=== PATIENT | female | born 1990 | race Caucasian/White ===

== ENCOUNTER 2020-04-04 14:30 | Outpatient (CLI) | payer OTHER ==
[2020-04-04 15:10] LABS: BILIRUBIN,URINE NEGATIVE (NEGATIVE); GLUCOSE, URINE (UA) NEGATIVE (NEGATIVE); KETONES,URINE (UA) NEGATIVE (NEGATIVE); LEUKOCYTE ESTERASE, URINE NEGATIVE (NEGATIVE); NITRITE,URINE NEGATIVE (NEGATIVE); OCCULT BLOOD,URINE NEGATIVE (NEGATIVE); PROTEIN,URINE NEGATIVE (NEGATIVE); UROBILINOGEN,URINE 0.2 (NORMAL) E.U./dL (NORMAL)
[2020-04-04 15:14] LABS: CLARITY,URINE CLEAR (CLEAR)
[2020-04-04 15:16] VITALS: BP 98/63
[2020-04-04 15:32] LABS: RBC,URINE 0-5 /HPF (0-5)
[2020-04-04 15:33] LABS: BACTERIA,URINE Rare /HPF (None Seen); SQUAMOUS EPITHELIAL CELL,UR RARE Squamous (<= Few)
--- NOTE | 2020-04-04 18:01 | PROVIDER PROGRESS NOTE ---
Subjective - Subjective Subjective: CC: vaginal bleeding HPI: came to ER and was evaluated on L&D for vaginal bleeding, spotting, started today. No trauma or LOF. Is feeling some cramping abdominal pain that is mild. Does NOT feel like labor. No dysuria, no abnormal discharge. O: AVSS, alert, NAD. Abd soft, gravid. Fundus nontender. External genetalia, labia, urethra normal. Vagina pink with normal discharge. Cervix with ectropion present. SVE closed. Bedside CL with me was 4cm. Wet mount: + clue cells Formal US: CL >3cm and closed, no previa, no subchorionic hemorrhage. Bilateral CPK present. [place]: neg FHT's normal A/P: 29yo at 19w with vaginal bleeding due to BV and ectropion, will treat with metronidazole. Incidental finding of bilateral choroid plexus cysts , she would like genetic screening, proper paperwork is not available. will call her tomorrow to arrange that as well as transfer from [facility] per her request. Objective - Vital Signs/Intake & Output Vital Signs: Vital Signs x48h Temp Pulse Resp BP Pulse Ox 04/04/20 15:15 98/63 04/04/20 15:03 99.1 F 78 17 97/57 L 99 - Lab Results Other Labs: Lab Results x24hrs 04/04/20 Range/Units 14:45 Urine Color YELLOW Urine Clarity CLEAR (CLEAR) Urine pH 7.0 (5.0-7.5) PH Ur Specific [place] 1.015 (1.002-1.030) Urine Protein NEGATIVE (NEGATIVE) mg/dL Urine Glucose (UA) NEGATIVE (NEGATIVE) mg/dL Urine Ketones NEGATIVE (NEGATIVE) mg/dL Urine Occult Blood NEGATIVE (NEGATIVE) Urine Nitrite NEGATIVE (NEGATIVE) Urine Bilirubin NEGATIVE (NEGATIVE) Urine Urobilinogen 0.2 (NORMAL) (NORMAL) E.U./dL Ur Leukocyte Esterase NEGATIVE (NEGATIVE) Urine RBC 0-5 (0-5) /HPF Urine WBC 0-3 (0-5) /HPF Ur Squamous Epith Cells RARE Squamous (<= Few) Urine Bacteria Rare (None Seen) /HPF Urine Culture Comments NOT INDICATED
--- NOTE | 2020-04-04 18:37 | Ultrasound Report ---
PROCEDURE: OB Limited INDICATIONS: vaginal bleeding at 19w eval placenta OUTSIDE/PRIOR DATING DATA: Last menstrual period (LMP): 5.16.20. LMP-based estimated date of delivery (NAHED): -. First dating scan (date and location): Unknown. Estimated date of delivery (NAHED) from first dating scan: 08.26.20. TECHNIQUE: Real-time scanning was performed of the fetus, with image documentation. Endovaginal scanning: Yes COMPARISON: None. FINDINGS: A single living intrauterine gestation is present. Presentation: Variable Placenta: Placental position is posterior, without previa. Amniotic fluid index: 10.9 cm, 15th percentile for gestational age. heart rate: 153 beats per minutes. Maternal cervical canal: 3.7 cm long; normal length is 2.5 cm or more. biometrics: BPD: 45 mm; 19 weeks 4 days Head circumference: 164 mm; 19 weeks 1 day Abdominal circumference: 153 mm; 20 weeks 1 day Femur length: 27 mm; 18 weeks 2 days Composition gestational age based on current OB ultrasound: 19 weeks 3 days Estimated weight: 294 g, which is at the 40th percentile for gestational age Limited survey of anatomy includes choroid plexus cysts bilaterally, normal chest/diaphragm, st omach/abdomen, bilateral renal regions, and urinary bladder/pelvis. IMPRESSION: 1. Single living intrauterine gestation. 2. Choroid plexus cysts. Reviewed by: Bandar Hoyt MD on 04/04/2020 6:36 PM PDT Approved by: Bandar Hoyt MD on 04/04/2020 6:36 PM PDT Station ID: [id number]
--- NOTE | 2020-04-04 18:39 | Ultrasound Report ---
PROCEDURE: OB Transvaginal INDICATIONS: Vaginal bleeding at 19w need CL TECHNIQUE: Endovaginal ultrasound examination was performed. COMPARISON: None. FINDINGS: Please see the accompanying Limited OB ultrasound report. IMPRESSION: Endovaginal ultrasound was performed. Please see the accompanying obstetric ultrasound report for fur ther discussion. Reviewed by: Bandar Hoyt MD on 04/04/2020 6:37 PM PDT Approved by: Bandar Hoyt MD on 04/04/2020 6:37 PM PDT Station ID: [id number]
[2020-04-05 00:19] LABS: TRICHOMONAS VAGINALIS DNA NEGATIVE (NEGATIVE)
== END 2020-04-04 18:10 | disposition home or self-care (01) ==
LOC: WFO 14:30 → FBP 14:37 → WFO 18:10
PROVIDERS: ATTEND Obstetrics & Gynecology
DX: O23.592 Infection of other part of genital tract in pregnancy, second trimester (principal); O99.89 Other specified diseases and conditions complicating pregnancy, childbirth and the puerperium; N86 Erosion and ectropion of cervix uteri; O26.852 Spotting complicating pregnancy, second trimester; Z3A.19 19 weeks gestation of pregnancy
CPT/HCPCS: 76815; 76817; 81001; 87086; 87210; 87491; 87591; 87661; 99214

== ENCOUNTER 2020-06-08 09:53 | Outpatient (CLI) | payer OTHER ==
[2020-06-08 11:32] LABS: HGB - HEMOGLOBIN 12.2 g/dL (12.0-16.0); MEAN CORPUSCULAR HEMOGLOBIN 31.9 pg (27.0-31.0); MEAN CORPUSCULAR VOLUME 93.7 fL (81.0-99.0); MEAN PLATELET VOLUME 9.8 fL (7.9-10.8); RED BLOOD COUNT 3.83 10^6/uL (4.20-5.40); RED CELL DISTRIBUTION WIDTH 13.4 % (12.0-15.0); WHITE BLOOD COUNT 9.4 x10^3/uL (4.8-10.8)
== END 2020-06-08 09:54 | disposition home or self-care (01) ==
LOC: LAB 09:53
PROVIDERS: ATTEND Obstetrics & Gynecology
DX: O09.90 Supervision of high risk pregnancy, unspecified, unspecified trimester (principal)
CPT/HCPCS: 36415; 82950; 85027

== ENCOUNTER 2020-06-26 07:00 | Outpatient (CLI) | payer OTHER ==
[2020-06-26 19:25] LABS: BACTERIAL VAGINOSIS DNA NEGATIVE (NEGATIVE); CANDIDA KRUSEI DNA NEGATIVE (NEGATIVE); TRICHOMONAS VAGINALIS DNA NEGATIVE (NEGATIVE)
[2020-06-26 19:26] LABS: CANDIDA GLABRATA DNA NEGATIVE (NEGATIVE); CANDIDA GROUP DNA NEGATIVE (NEGATIVE)
[2020-06-26 21:04] LABS: CHLAMYDIA TRACHOMATIS DNA NEGATIVE (NEGATIVE); NEISSERIA GONORRHOEAE DNA NEGATIVE (NEGATIVE); TRICHOMONAS VAGINALIS DNA NEGATIVE (NEGATIVE)
== END 2020-06-26 23:59 | disposition home or self-care (01) ==
LOC: MERGE 07:00 → LAB.R 07:00
PROVIDERS: ATTEND Obstetrics & Gynecology
DX: O09.90 Supervision of high risk pregnancy, unspecified, unspecified trimester (principal); O60.00 Preterm labor without delivery, unspecified trimester; R30.0 Dysuria
CPT/HCPCS: 82731; 87086; 87491; 87591; 87661; 87801

== ENCOUNTER 2020-08-16 08:00 | Outpatient (CLI) | payer OTHER ==
[2020-08-16 10:38] LABS: BASOPHILS # (AUTO) 0.1 10^3/uL (0.0-0.1); BASOPHILS % (AUTO) 0.5 %; EOSINOPHILS # (AUTO) 0.1 10^3/uL (0.0-0.7); EOSINOPHILS % (AUTO) 0.5 %; HGB - HEMOGLOBIN 12.3 g/dL (12.0-16.0); LYMPHOCYTES # (AUTO) 2.2 10^3/uL (1.5-3.5); LYMPHOCYTES % (AUTO) 20.8 %; MEAN CORPUSCULAR HEMOGLOBIN 30.1 pg (27.0-31.0); MEAN CORPUSCULAR HGB CONC 32.5 g/dL (32.0-36.0); MEAN CORPUSCULAR VOLUME 92.4 fL (81.0-99.0); MEAN PLATELET VOLUME 10.5 fL (7.9-10.8); MONOCYTES # (AUTO) 0.7 10^3/uL (0.0-1.0); NEUTROPHILS # (AUTO) 7.1 10^3/uL (1.5-6.6); NEUTROPHILS % (AUTO) 68.6 %; PLT - PLATELET COUNT 157 10^3/uL (130-450); RED BLOOD COUNT 4.09 10^6/uL (4.20-5.40); RED CELL DISTRIBUTION WIDTH 13.3 % (12.0-15.0); WHITE BLOOD COUNT 10.4 x10^3/uL (4.8-10.8)
== END 2020-08-16 08:01 | disposition home or self-care (01) ==
LOC: LAB 08:00 → MERGE 08:00 → LAB 08:01
PROVIDERS: ATTEND Obstetrics & Gynecology
DX: Z01.812 Encounter for preprocedural laboratory examination (principal); O34.83 Maternal care for other abnormalities of pelvic organs, third trimester; N81.89 Other female genital prolapse; Z3A.39 39 weeks gestation of pregnancy; Z20.822 Contact with and (suspected) exposure to COVID-19
CPT/HCPCS: 36415; 85025

== ENCOUNTER 2020-08-20 05:28 | Inpatient (IN) | payer OTHER ==
[2020-08-20] MEDS: LACTATED RINGERS 1,000 ML IV SCH ×2 (06:15→17:49)
[2020-08-20 06:42] LABS: BASOPHILS % (AUTO) 0.4 %; EOSINOPHILS % (AUTO) 0.5 %; HGB - HEMOGLOBIN 11.3 g/dL (12.0-16.0); LYMPHOCYTES % (AUTO) 23.7 %; MEAN CORPUSCULAR HEMOGLOBIN 30.3 pg (27.0-31.0); MEAN CORPUSCULAR HGB CONC 32.6 g/dL (32.0-36.0); MEAN PLATELET VOLUME 10.2 fL (7.9-10.8); MONOCYTES # (AUTO) 0.6 10^3/uL (0.0-1.0); MONOCYTES % (AUTO) 7.4 %; NEUTROPHILS # (AUTO) 5.5 10^3/uL (1.5-6.6); PLT - PLATELET COUNT 152 10^3/uL (130-450); RED BLOOD COUNT 3.73 10^6/uL (4.20-5.40); RED CELL DISTRIBUTION WIDTH 13.3 % (12.0-15.0); WHITE BLOOD COUNT 8.4 x10^3/uL (4.8-10.8)
--- NOTE | 2020-08-20 06:50 | HISTORY & PHYSICAL EXAMINATION ---
HPI - History of Present Illness HPI Comment/Other: The patient is a 29-year-old G2, now P1 at 38 weeks and 3 days EGA, here forPNV and preop assessment for CS and BTL. Patient transferred care from [facility] at 24 wga . Her has been complicated by presence of bilateral choroid plexus cysts on ultrasound with an estimated weight of 13 percentile.MFM not concerned on fu. . Patient has also had significant pelvic floor prolapse surgery and is opting for primary CS for delivery. Patient also notes that she has a history of congenital heart defect herself. She reveals that she has mitral valve prolapse and a "hole in her heart" that resolved with observation. She is not clear where the hole in her heart had been seen. Dating is by LMP of 11/21/2019, which gives an NAHED of 08/25/2020. Ultrasound on 01/31/2020 at 10 weeks 1 day gives NAHED of 08/25/2020, which is consistent with dates. Last was a normal after an elective induction. No forceps delivery. No vacuum delivery. She had prolapse surgery a year later in May of 2019 in [place]. Failed pessary and physical therapy. She believes that she underwent anterior-posterior repair as well as some sort of suspension procedure. It was very painful and she continues to have issues with it. She is now having some prolapse symptoms that are uncomfortable for her at present present. . Tolld that she will likely need a repeat procedure in about 10 years. Alternatively, she could have a and avoid undoing the surgery, but would have to undergo the recovery from a . Wants to proceed with CS a nd BTL. [facility] consents had been signed. otherwise uncomplicated. +FM. Denies LOF or VB/CTX. Allergies: SULFONAMIDES (Critical) Medications: BREAST PUMP (MISC. DEVICES) Double electric breast pump with breast pump kit. sig: pump each breast as needed Dx: Z39.1 Lactating Mother YONG: 5 years NAHED: 08/25/2020 FAMOTIDINE 20 MG ORAL TABLET (FAMOTIDINE) Take one tablet by mouth daily; Route: ORAL METOCLOPRAMIDE HCL 5 MG ORAL TABLET (METOCLOPRAMIDE HCL) Take 1-2 tablets by mouth every 6 hours as needed for headache or nausea; Route: ORAL ASCORBIC ACID 250 MG ORAL TABLET (ASCORBIC ACID) Take one tablet by mouth daily with iron; Route: ORAL FERROUS SULFATE 325 (65 FE) MG ORAL TABLET (FERROUS SULFATE) Take one tablet by mouth daily; Route: ORAL PRE-SOFIA FORMULA ORAL TABLET ( [id number]) Take one tablet by mouth once a day; Route: ORAL Problems: Preoperative examination (ICD-V72.84) (BIC46-K78.818) Pain in symphysis pubis joint (ICD-719.45) (CAY11-M24.50) labor without delivery, unspecified trimester (ICD-644.03) (ICD10- O60.00) Dysuria (ICD-788.1) (CVT26-S21.0) Supervision high risk , multigravida, unspecified trimester (ICD-V23.3) (LLQ70-J69.90) Uterine prolapse (ICD-618.1) (TMQ84-B73.4) Risk Factors: Smoked Tobacco Use: Never smoker Passive Smoke Exposure: no HIV High Risk Behavior: no Exercise: yes Type of Exercise: walking Seatbelt Use: 100 % Sun Exposure: frequently Alcohol Use: no Drug Use: no Vital Signs: Patient Profile: 29 Years Old Female Height: 60 inches Weight: 151 pounds BMI: 29.60 BP sittin / 75 Cuff size: regular Vitals Entered By: KAYKAY Damian (August 14, 2020 11:43 AM) Meds Reviewed: Done Allergies Reviewed: Done Past Medical History: Pelvic floor prolapse. Past Surgical History: Pelvic surgery for Uterine prolapse (2018) Appendectomy (2016) tonsillectomy (2016) knee (2008) Anterior-posterior repair with suspension procedure 2019. Tonsillectomy. Appendectomy. Knee surgery. Flowsheet View for Follow-up Visit Estimated weeks of gestation: 38 3/7 Weight: 151 Blood pressure: 112 / 75 Fundal height: 38 FHR: 153 Vaginal bleeding: no Vaginal discharge: no activity: yes Labor symptoms: no position: vertex Next visit: 1 wk Comment: Scheduled for CS and BTL next week Signed consents. Thinks she is sure regarding sterilization and we reviewed that it can be delated until postpregnancy so that she is not influenced by her discomfort. She does not want to delay at this time. No other concerns. 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 Impression & Recommendations: Problem # 1: Preoperative examination (ICD-V72.84) (PPG10-K75.818) Orders: 0502F - SUBSEQUENT VISIT (CPT-0502F) Reviewed risks/benefits/alternatives to and BTL Risks include, but are not limited to, bleeding, infection, damage to neatby tissue and organs. On average, EBL of up to 1 liter is considered within normal limits for CS. Risks of blood transfusion include infection Risk of HIV 1/2million nationwide Risk of Hepatitis 1/1 million Risks of transfusion reaction Infection risk moderate given clean/contaminated nature of procedure and IV antibiotics will be given. Damage to nearby tissue and organs including bladder, bowel, ureters, blood vessels, nerves, and fetus Damage may be noted intra-op and may be delayed until after the procedure is complete Reviewed management of complications and efforts to avoid such outcomes but reviewed that they may occur despite our best efforts Confirmed that sterlization is desired Patient understands that tubal ligation is an irreversible process that will result in future infertility Written informed consent obtained. Problem # 2: Supervision high risk , multigravida, unspecified trimester (ICD-V23.3) (NGB81-N93.90) Orders: 0502F - SUBSEQUENT VISIT (CPT-0502F) Signed BTL consent Rx for famotidine and reglan available Dating: LMP 11/21/2019 gives NAHED 08/25/2020. US on 01/31/2020 10W 1D gives NAHED of 08/27/2020; consistent with dates. FAS: EFW 13 percentile on ultrasound. Bilateral choroid plexus cyst on an initial FAS. Patient had repeat ultrasound at [facility], which showed persistent choroid plexus cyst with EFW 40%. -Prior provider recommended follow up ultrasound. -MFM had no concerns with fu us O positive/rubella immune NIPT 46,XX with AFP within normal limits. FAS see above. Flu immunization complete Tdap complete Glucola 109 HSV: Denies. GBS neg MOD: opting for elective -Discussed the potential implications of vaginal delivery on her pelvic organ prolapse, status post repair versus proceeding with an elective primary C- section. -Patient has decided to proceed with CS. OR request submitted Signed BTL consent Unsure if she is committed to sterilization but desires options Pap: 2020, will need repeat in 2022. Contraception: BTL consents signed . NOTICE: Patient legal surname is Mai and insured (and preferred name) is Derek. Current Allergies: SULFONAMIDES (Critical) Current Meds: BREAST PUMP (MISC. DEVICES) Double electric breast pump with breast pump kit. sig: pump each breast as needed Dx: Z39.1 Lactating Mother YONG: 5 years NAHED: 08/25/2020 FAMOTIDINE 20 MG ORAL TABLET (FAMOTIDINE) Take one tablet by mouth daily; Route: ORAL METOCLOPRAMIDE HCL 5 MG ORAL TABLET (METOCLOPRAMIDE HCL) Take 1-2 tablets by mouth every 6 hours as needed for headache or nausea; Route: ORAL ASCORBIC ACID 250 MG ORAL TABLET (ASCORBIC ACID) Take one tablet by mouth daily with iron; Route: ORAL FERROUS SULFATE 325 (65 FE) MG ORAL TABLET (FERROUS SULFATE) Take one tablet by mouth daily; Route: ORAL PRE- FORMULA ORAL TABLET ( [id number]) Take one tablet by mouth once a day; Route: ORAL Social & Family Hx - Social History Smoking Status: Never smoker Meds/Allgy - Allergies Allergies/Adverse Reactions: Allergies Allergy/AdvReac Type Severity Reaction Status Date / Time Sulfa (Sulfonamide Allergy Unknown Verified 08/17/20 10:06 Antibiotics) Exam - Vital Signs Reviewed Vital Signs: Yes Vital Signs: Vital Signs x48h Temp Pulse Resp BP Pulse Ox 08/20/20 05:50 98.8 F 101 H 18 104/69 98 08/20/20 03:21 98.8 F - Physical Exam General Appearance: positive: No acute distress Neck: positive: Nml inspection Respiratory: positive: No respiratory distress Cardiovascular: positive: Other (RR) Abdomen: positive: Non-tender, Other (gravid, NT/ND) Skin: positive: Color nml Extremities: positive: Non-tender, No pedal edema Neurologic/Psychiatric: positive: Oriented x3 Comments/Other: EFM 135 mod remington 15x15 accels no decels TOCO: quiet Results - Lab Results Fish Bones: 08/20/20 06:30 Other Lab Results: Lab Results x24hrs 08/20/20 Range/Units 06:30 WBC 8.4 (4.8-10.8) x10^3/uL RBC 3.73 L (4.20-5.40) 10^6/uL Hgb 11.3 L (12.0-16.0) g/dL Hct 34.7 L (37.0-47.0) % MCV 93.0 (81.0-99.0) fL MCH 30.3 (27.0-31.0) pg MCHC 32.6 (32.0-36.0) g/dL RDW 13.3 (12.0-15.0) % Plt Count 152 (130-450) 10^3/uL MPV 10.2 (7.9-10.8) fL Neut # (Auto) 5.5 (1.5-6.6) 10^3/uL Lymph # (Auto) 2.0 (1.5-3.5) 10^3/uL [place] # (Auto) 0.6 (0.0-1.0) 10^3/uL Eos # (Auto) 0.0 (0.0-0.7) 10^3/uL Baso # (Auto) 0.0 (0.0-0.1) 10^3/uL Absolute Nucleated RBC 0.00 x10^3/uL Nucleated RBC % 0.0 /100WBC
[2020-08-20] MEDS ORDERED: CITRIC ACID/SODIUM CITRATE 15 ML UDC PO ONE (07:00)
[2020-08-20] MEDS ORDERED: LIDOCAINE 2%-EPI 1:100000 20 ML MDV ONE (07:00)
[2020-08-20] MEDS ORDERED: BUPIVACAINE 0.5% PF 30 ML VIAL ONE (07:00)
[2020-08-20] MEDS ORDERED: fentaNYL 100 MCG/2 ML VIAL ONE (07:18)
[2020-08-20] MEDS ORDERED: MORPHINE PF 5 MG/10 ML VIAL ONE (07:18)
[2020-08-20] MEDS ORDERED: PHENYLEPHRINE 10 MG/ML VIAL ONE (07:20)
--- NOTE | 2020-08-20 07:24 | ANESTHESIA ---
Pre-Anesthesia VS, & Labs - Diagnosis desires c/s r/t previous , desires sterilization - Procedure Section w/bilat salpingectomy Vital Signs: Temp Pulse Resp BP Pulse Ox 37.1 C 101 H 18 104/69 98 08/20/20 05:50 08/20/20 05:50 08/20/20 05:50 08/20/20 05:50 08/20/20 05:50 Height: 5 ft Weight (kg): 68.492 kg Body Mass Index: 29.5 BMI Classification: Overweight - NPO >8 hours - Is Patient ?: Yes - Lab Results Current Lab Results: Laboratory Tests 08/20/20 06:35: Crossmatch IS Only See Detail 08/20/20 06:30: Blood Type Recheck O POSITIVE 08/20/20 06:30: WBC 8.4, RBC 3.73 L, Hgb 11.3 L, Hct 34.7 L, MCV 93.0, MCH 30.3, MCHC 32.6, RDW 13.3, Plt Count 152, MPV 10.2, Neut # (Auto) 5.5, Lymph # (Auto) 2.0, Moody # (Auto) 0.6, Eos # (Auto) 0.0, Baso # (Auto) 0.0, Absolute Nucleated RBC 0.00, Nucleated RBC % 0.0 Lab results reviewed: Yes Fish Bones: 08/20/20 06:30 Home Medications and Allergies Active Medications Lactated Ringer's (Lr) 1,000 mls @ 125 mls/hr IV .Q8H WAI Last Admin: 08/20/20 06:15 Dose: 125 mls/hr Documented by: Acetaminophen (Ofirmev) 100 mls @ 400 mls/hr IV ONCE ONE Stop: 08/20/20 08:14 Cefazolin Sodium/Dextrose (Ancef 2 Gm/50 Ml) 2 gm in 50 mls @ 100 mls/hr IV ONCE ONE Stop: 08/20/20 07:59 Allergies/Adverse Reactions: Allergies Allergy/AdvReac Type Severity Reaction Status Date / Time Sulfa (Sulfonamide Allergy Unknown Verified 08/17/20 10:06 Antibiotics) Anes History & Medical History - Anesthetic History Anesthesia Complications: reports: No previous complications Family history of Anesthesia Complications: Denies Family history of Malignant Hyperthermia: Denies - Medical History Cardiovascular: reports: Other (hx mitral valve prolapse and probable PFO that resolved) Pulmonary: reports: None Gastrointestinal: reports: GERD Urinary: reports: None Neuro: reports: None Endocrine/Autoimmune: reports: None Blood Disorders: reports: None Skin: reports: None Smoking Status: Never smoker Psychosocial: reports: No issues indicated History of Cancer?: No - Surgical History Gynecologic: Other (pelvic floor, A&P repair) Exam General: Alert, Oriented x3, Cooperative Dental: WNL Mouth Openin Fingerbreadth Neck Mobility: Normal Mallampati classification: II Thyromental Distance: 4-6 cm Respiratory: Lungs clear, Normal breath sounds, No respiratory distress Cardiovascular: Regular rate Neurological: Normal speech Mental/Cognitive Status: Alert/Oriented X3, Normal for patient Cognitive Status: Within normal limits Plan Anesthesia Type: Spinal Consent for Procedure(s) Verified and Reviewed: Yes Code Status: Attempt Resuscitation ASA classification: 2-Mild systemic disease Is this case an emergency?: No
[2020-08-20] MEDS ORDERED: miSOPROStoL 200 MCG TABLET ONE (07:25)
[2020-08-20] MEDS ORDERED: METHYLERGONOVINE 0.2 MG/ML VIAL ONE (07:26)
[2020-08-20] MEDS ORDERED: CARBOPROST TROMETHAMINE 250 MCG/ML AMP IM ONE (07:26)
[2020-08-20] MEDS ORDERED: OXYTOCIN 10 UNIT/ML VIAL ONE ×2 (07:28→09:17)
[2020-08-20] MEDS ORDERED: ceFAZolin 2 GM/50 ML 2 GM/50 ML BAG IV ONE (07:30)
[2020-08-20] MEDS ORDERED: ACETAMINOPHEN 1,000 MG/100 ML 100 ML IV ONE (08:00)
[2020-08-20] MEDS ORDERED: MORPHINE PF 5 MG/10 ML VIAL IT ONE (08:06)
[2020-08-20] MEDS ORDERED: fentaNYL 100 MCG/2 ML VIAL IT ONE (08:06)
[2020-08-20] MEDS ORDERED: ONDANSETRON 4 MG/2 ML VIAL ONE (08:21)
[2020-08-20] MEDS ORDERED: BUPIVACAINE 0.5% PF 30 ML VIAL INFIL ONE ×2 (09:24→09:36)
[2020-08-20] MEDS ORDERED: KETOROLAC 30 MG/ML VIAL ONE (09:25)
[2020-08-20] MEDS ORDERED: LIDOCAINE 2%-EPI 1:100000 20 ML MDV SUBQ ONE ×2 (09:25→09:37)
[2020-08-20] MEDS ORDERED: ONDANSETRON ODT 4 MG TABLET TL PRN (09:50)
[2020-08-20] MEDS ORDERED: OXYTOCIN/SODIUM CHLORIDE 500 ML IV PRN (09:50)
[2020-08-20] MEDS ORDERED: MORPHINE 2 MG/ML CARPUJECT IVP PRN (09:54)
[2020-08-20] MEDS ORDERED: ePHEDrine 50 MG/ML VIAL IVP PRN ×2 (09:54)
[2020-08-20] MEDS ORDERED: NALOXONE 0.4 MG/ML VIAL IVP PRN ×2 (09:54)
[2020-08-20] MEDS ORDERED: METOCLOPRAMIDE 10 MG/2 ML VIAL IVP PRN ×2 (09:54)
[2020-08-20] MEDS ORDERED: diphenhydrAMINE INJ 50 MG/ML VIAL IVP PRN (09:54)
[2020-08-20] MEDS ORDERED: ATROPINE ABBOJECT 1 MG/10 ML SYRINGE IVP PRN (09:54)
[2020-08-20] MEDS ORDERED: ONDANSETRON 4 MG/2 ML VIAL IVP PRN ×2 (09:54)
[2020-08-20] MEDS ORDERED: HYDROmorphone 0.5 MG/0.5 ML SYRINGE IVP PRN (09:54)
[2020-08-20] MEDS ORDERED: fentaNYL 100 MCG/2 ML VIAL IVP PRN (09:54)
[2020-08-20] MEDS ORDERED: LACTATED RINGERS 1,000 ML IV ONE (09:56)
--- NOTE | 2020-08-20 09:58 | OPERATIVE REPORT ---
Operative Report - General Admit Date: 08/20/20 Procedure Date: 08/20/20 Planned Procedure: Primary low transverse Pre-Op Diagnosis: History of complex pelvic organ prolapse repair Procedure Performed: Primary low transverse Post Op Diagnosis: Same and delivery of term gestation - Procedure Note Primary Surgeon: Jessica Moore MD Secondary Surgeon: AYANA Muhammad Anesthesia Provider: Arpita Nelson CRNA Anesthesia Technique: Spinal Pathology: Placenta for routine discard IV Fluids (mL): 1,700 Estimated Blood Loss (mL): 500 Urine Output (mL): 300 Indications: The patient is a 29-year-old G2, now P1 at 39 weeks and 2 days EGA here for primary . She has had one prior vaginal delivery and had severe prolapse issues following delivery. Failed PT and pessary and had a uterine suspension and A&P repair by Urogynecology. Patient wants to avoid damaging the surgical repair and is opting for primary to prolong the surgical effects. After prolonged discussion, patient has opted not to undergo sterilization at this time. Findings: Very thin fascial layer with greater than average distensibility of the connective tissue. Normal appearing uterus, fallopian tubes, and ovaries. Female in vertex presentation with Apgars 8/9. Complications: None - Other Other Information/Narrative: Risks benefits and alternatives of the procedure were discussed. Written informed consent was obtained. Patient was taken to the operating room where spinal anesthesia was placed and found to be adequate. She was prepped and draped in the usual sterile fashion in the dorsal supine position with a le ftward tilt. Ribeiro catheter was in place. SCDs were in place and activated. Cefazolin 2 g IV was given as a preoperative antibiotic. Preoperative timeout was performed. . A Pfannenstiel incision was made in the skin with a scalpel and carried through the underlying layer of fascia in a combination of sharp and blunt dissection. The fascia was incised in the midline, and the incision was extended laterally with blunt dissection given the fragility of the fascial layer. The superior aspect of the fascial incision was grasped with the Melissa clamps, elevated, and the underlying rectus muscles were dissected off bluntly and sharply using the Kirkland scissors. Attention was then turned to the inferior aspect of the incision which in a similar fashion was grasped, tented up with Melissa clamps, and the underlying rectus muscles dissected off bluntly and sharply using Kirkland scissors. The rectus muscles were then in the midline. The peritoneum was identified, tented up, and entered bluntly. The peritoneal incision was extended superiorly and inferiorly with good visualization of the bladder. The bladder that blade was then inserted. A bladder flap was not created. The lower uterine segment of the uterus was identified, and incised in a transverse fashion with a scalpel. The uterus was entered bluntly. The uterine incision was extended in a craniocaudal fashion by manual stretch. The bladder blade was removed. The infant was delivered from from vertex position. Baby was wrapped in a warm sterile towel. Delayed cord clamping was performed. After cessation of pulsations, the cord was clamped x2 and cut. The was handed off to the waiting pediatricians. The placenta was removed with manual expression. The uterus was NOT exteriorized and cleared of all clots clots and debris via manual swipe using Ray-Kaylin x2. The uterine incision was then repaired in a running locked fashion using 0 Vicryl suture. The incisoin was reinforced with a running imbricating layer again using 0-Vicryl suture. Excellent hemostasis was obtained. The gutters were cleared of all clots and debris. The pelvis was irrigated with wsloppy wet lap sponges and gentle suction. The uterine defect was well visualized in normal anatomic position it was noted again to be hemostatic. The peritoneum was then reapproximated with 2-0 Vicryl in a running fashion. The rectus muscles were then reapproximated using interrupted [id number] sutures using 2-0 Chromic. Good hemostasis was noted. The fascia was then closed using 0 Vicryl in a running fashion starting from the left lateral edge to the midline. A second suture was used to close the fascia in a running fashion starting from the right lateral edge and meeting in the midline, agian using 0-Vicryl. The subcutaneous tissue was then irrigated and closed using 2-0 chromic in a running subcutaneous suture. Skin was closed in a running subcuticular suture using 4-0 Monocryl. A total of 20 cc of 2% lidocaine mixed with 0.25% bupivicaine with epinephrine was injected into the suture line. Steri-Strips were applied to reinforce the incision and dressing was applied. Procedure was well-tolerated and without complication. Sponge lap and needle counts were correct x2. Patient was taken to recovery room in stable condition. CHILANGO Muhammad CNM, assisted with retraction and delivery of the infant.
[2020-08-20] MEDS ORDERED: LACTATED RINGERS 1,000 ML IV SCH ×2 (10:00)
[2020-08-20] MEDS: NALBUPHINE 10 MG/ML AMP IVP PRN ×2 (10:58→15:07)
[2020-08-20] MEDS: SODIUM CHLORIDE FLUSH 0.9% 10 ML SYRINGE IVP SCH ×3 (10:58→21:58)
--- NOTE | 2020-08-20 13:41 | ANESTHESIA POST OP EVALUATION ---
Anesthesia Post Eval - Post Anesthesia Eval Vitals: Last Vital Signs Temp 37.2 C 08/20/20 12:52 Pulse 98 08/20/20 12:52 Resp 18 08/20/20 12:52 BP 115/73 08/20/20 12:52 Pulse Ox 97 08/20/20 12:52 CV Function Including HR & BP: positive: Stable Pain Control: positive: Satisfactory Nausea & Vomiting: positive: Negative Mental Status: positive: Baseline Respiratory Status: Airway Patent Hydration Status: Satisfactory Anesthesia Complications: positive: None
[2020-08-20] MEDS: SODIUM CHLORIDE FLUSH 0.9% 10 ML SYRINGE IVP PRN ×3 (15:07→21:59)
[2020-08-20] MEDS: ACETAMINOPHEN 500 MG TABLET PO SCH ×2 (16:01→19:33)
[2020-08-20] MEDS: KETOROLAC 30 MG/ML VIAL IVP SCH ×3 (16:03→21:58)
[2020-08-20] MEDS: IBUPROFEN 600 MG TABLET PO SCH ×2 (19:32→19:33)
[2020-08-20] MEDS: DOCUSATE SODIUM 100 MG CAPSULE PO SCH (21:08)
[2020-08-20] MEDS: SIMETHICONE CHEW 80 MG TABLET PO PRN (21:08)
[2020-08-21] MEDS: ACETAMINOPHEN 500 MG TABLET PO SCH ×3 (00:26→16:30)
[2020-08-21] MEDS: KETOROLAC 30 MG/ML VIAL IVP SCH (05:08)
[2020-08-21] MEDS: SODIUM CHLORIDE FLUSH 0.9% 10 ML SYRINGE IVP PRN (05:09)
[2020-08-21] MEDS: SODIUM CHLORIDE FLUSH 0.9% 10 ML SYRINGE IVP SCH (05:09)
[2020-08-21 05:36] LABS: BASOPHILS % (AUTO) 0.3 %; EOSINOPHILS # (AUTO) 0.1 10^3/uL (0.0-0.7); EOSINOPHILS % (AUTO) 0.4 %; HGB - HEMOGLOBIN 9.8 g/dL (12.0-16.0); LYMPHOCYTES # (AUTO) 2.2 10^3/uL (1.5-3.5); MEAN CORPUSCULAR HEMOGLOBIN 29.9 pg (27.0-31.0); MEAN CORPUSCULAR VOLUME 96.3 fL (81.0-99.0); MEAN PLATELET VOLUME 10.4 fL (7.9-10.8); MONOCYTES % (AUTO) 7.8 %; NEUTROPHILS # (AUTO) 8.8 10^3/uL (1.5-6.6); PLT - PLATELET COUNT 128 10^3/uL (130-450); RED BLOOD COUNT 3.28 10^6/uL (4.20-5.40); RED CELL DISTRIBUTION WIDTH 13.5 % (12.0-15.0); WHITE BLOOD COUNT 12.3 x10^3/uL (4.8-10.8)
[2020-08-21] MEDS: DOCUSATE SODIUM 100 MG CAPSULE PO SCH ×2 (08:26→23:01)
[2020-08-21] MEDS: SIMETHICONE CHEW 80 MG TABLET PO PRN (08:27)
--- NOTE | 2020-08-21 09:05 | PROVIDER PROGRESS NOTE ---
Subjective - Prog Note Date Prog Note Date: 08/21/20 Prog Note Time: 09:03 - Subjective Subjective: Patient has been up and ambulating. Tolerating po. Pain well managed. States she is in no pain. Ribeiro out and has had one void. Dressing saturated last night. Pressure dressing in place. No concerns. BF going well. Objective - Vital Signs/Intake & Output Reviewed Vital Signs: Yes Vital Signs: Vital Signs x48h Temp Pulse Resp BP Pulse Ox 08/21/20 08:04 98.4 F 75 16 112/66 99 08/21/20 05:11 97.9 F 87 16 106/74 100 Intake & Output: Intake & Output 08/18/20 08/19/20 08/20/20 08/21/20 23:59 23:59 23:59 23:59 Intake Total 1999 Output Total 8073 2330 Balance -722 -5436 - Objective General Appearance: positive: No acute distress Respiratory: positive: No respiratory distress Cardiovascular: positive: Other (RR) Skin: positive: Color nml, Warm, Dry Extremities: positive: Non-tender, No pedal edema Neurologic/Psychiatric: positive: Oriented x3 - Lab Results Fish Bones: 08/21/20 05:28 Other Labs: Lab Results x24hrs 08/21/20 Range/Units 05:28 WBC 12.3 H (4.8-10.8) x10^3/uL RBC 3.28 L (4.20-5.40) 10^6/uL Hgb 9.8 L (12.0-16.0) g/dL Hct 31.6 L (37.0-47.0) % MCV 96.3 (81.0-99.0) fL MCH 29.9 (27.0-31.0) pg MCHC 31.0 L (32.0-36.0) g/dL RDW 13.5 (12.0-15.0) % Plt Count 128 L (130-450) 10^3/uL MPV 10.4 (7.9-10.8) fL Neut # (Auto) 8.8 H (1.5-6.6) 10^3/uL Lymph # (Auto) 2.2 (1.5-3.5) 10^3/uL Moody # (Auto) 1.0 (0.0-1.0) 10^3/uL Eos # (Auto) 0.1 (0.0-0.7) 10^3/uL Baso # (Auto) 0.0 (0.0-0.1) 10^3/uL Absolute Nucleated RBC 0.00 x10^3/uL Nucleated RBC % 0.0 /100WBC - Other Results/Comments Other Results/Comments: INCISION: Pressure dressing in place. CDI Assessment/Plan - Problem List (1) delivery delivered Impression: POD#1: Doing well Cont to encoruage ambulation Reviewed my concerns for Christofer-Danlos and poor connective tissue status Anticipate DC home in am
[2020-08-21] MEDS: IBUPROFEN 600 MG TABLET PO SCH ×3 (10:57→23:01)
[2020-08-21] MEDS: oxyCODONE 5 MG TABLET PO PRN (18:05)
[2020-08-22] MEDS: ACETAMINOPHEN 500 MG TABLET PO SCH ×2 (00:53→08:00)
[2020-08-22] MEDS: oxyCODONE 5 MG TABLET PO PRN ×2 (03:49→08:01)
[2020-08-22] MEDS: IBUPROFEN 600 MG TABLET PO SCH (05:54)
[2020-08-22] MEDS: SIMETHICONE CHEW 80 MG TABLET PO PRN (08:01)
[2020-08-22] MEDS: DOCUSATE SODIUM 100 MG CAPSULE PO SCH (08:01)
[2020-08-22 08:12] VITALS: BP 110/71
--- NOTE | 2020-08-22 08:33 | PROVIDER PROGRESS NOTE ---
Subjective - Prog Note Date Prog Note Date: 08/22/20 Prog Note Time: 08:29 - Subjective Subjective: Patient is doing well. Up and ambulating. Tolerating po. Pain is well managed. Voiding. BF going well. Objective - Vital Signs/Intake & Output Reviewed Vital Signs: Yes Vital Signs: Vital Signs x48h Temp Pulse Resp BP Pulse Ox 08/22/20 08:11 97.5 F L 64 19 110/71 99 08/22/20 00:55 97.9 F 71 15 105/64 99 Intake & Output: Intake & Output 08/19/20 08/20/20 08/21/20 08/22/20 23:59 23:59 23:59 23:59 Intake Total 1999 Output Total [id number] [place] [id number] - Objective General Appearance: positive: No acute distress Respiratory: positive: No respiratory distress, Breath sounds nml Cardiovascular: positive: Regular rate & rhythm Abdomen: positive: Non-tender, Other (FF below the umbi. Dressing removed. Steris stained with serosang fluid.) Skin: positive: Color nml Extremities: positive: Non-tender, No pedal edema Neurologic/Psychiatric: positive: Oriented x3 - Lab Results Fish Bones: 08/21/20 05:28 Assessment/Plan - Problem List (1) delivery delivered Impression: POD#2: Patient doing well BF going well Pain well managed Rh positive Discharge instructions given
--- NOTE | 2020-08-22 08:37 | Discharge Plan ---
Discharge Plan Problem Reviewed?: Yes Disposition: Home, Self Care Condition: Good Prescriptions: Acetaminophen [Acetaminophen Extra Strength] 1,000 mg PO Q8H PRN #60 tab PRN Reason: Pain Docusate Sodium 100Mg Capsule [Colace 100Mg Capsule] 100 - 200 mg PO BID PRN #60 cap PRN Reason: Constipation Ibuprofen [Motrin] 600 mg PO Q6H PRN #60 tab PRN Reason: Pain oxyCODONE [Roxicodone] 2.5 - 5 mg PO Q4H PRN #24 tab PRN Reason: Severe Pain Health Concerns: Nothing in the vagina for 6 weeks: No intercourse, tampons, douching Call for: -Fever greater than 100.5 -Pain that does not improve with pain medication -Heavy bleeding in which you are soaking a pad an hour for 2 hours in a row -Incision becomes hot, hard, red, starts to open, or leaks foul smelling fluid No lifting more than 10# for 4 weeks [address] while on narcotics Ok to shower. Let water run over the incision. Do not soap, scrub, or apply lotion. Pat dry with a clean towel or izzy a hair specialist. The surgical stickers will start to peel off and you can remove them when they do. Otherwise, the provider will remove them at your one week follow-up appointment. OK to use an unscented sanitary napkin or clean washcloth to keep the incision dry if the belly folds over the incision. No Smoking: If you smoke, Please STOP! Call for help.
--- NOTE | 2020-08-22 08:38 | DISCHARGE SUMMARY ---
Discharge Summary Discharge Date: 08/22/20 Discharging Provider: Teresa Condition at Discharge: Good Discharge Disposition: 01 Home, Self Care - DIAGNOSES Admission Diagnoses: IUP at 39+2 wga Hx of pelvic organ prolapse with complex repair. Discharge Diagnoses with Status of Each Condition: Same and delivery of term gestation. - HPI History of Present Illness: The patient is a 29-year-old G2, now P1 at 39 weeks and 2 days EGA, here for CS and BTL. Patient transferred care from [facility] at 24 wga . Her has been complicated by presence of bilateral choroid plexus cysts on ultrasound with an estimated weight of 13 percentile.MFM not concerned on fu. . Patient has also had significant pelvic floor prolapse surgery and is opting for primary CS for delivery. Patient also notes that she has a history of congenital heart defect herself. She reveals that she has mitral valve prolapse and a "hole in her heart" that resolved with observation. She is not clear where the hole in her heart had been seen. Dating is by LMP of 11/21/2019, which gives an NAHED of 08/25/2020. Ultrasound on 01/31/2020 at 10 weeks 1 day gives NAHED of 08/25/2020, which is consistent with dates. Last was a normal after an elective induction. No forceps delivery. No vacuum delivery. She had prolapse surgery a year later in May of 2019 in [place]. Failed pessary and physical therapy. She believes that she underwent anterior-posterior repair as well as some sort of suspension procedure. It was very painful and she continues to have issues with it. She is now having some prolapse symptoms that are uncomfortable for her at present present. . Told that she will likely need a repeat procedure in about 10 years. Alternatively, she could have a and avoid undoing the surgery, but would have to undergo the recovery from a . Wants to proceed with CS and BTL. [facility] consents had been signed. At admission, patient reports she did NOT want the tubal ligation. Admitted for scheduled primary low transverse . - CONSULTS | PROCEDURES Procedures: Primary low transverse - HOSPITAL COURSE Hospital Course: Patient was admitted for the aforementioned procedure. Primary was performed on 08/20/2020. Uncomplicated procedure and well tolerated. Delivered a viable female infant from vertex position with Apgars of 8/9, weight 3110 g. Fascia was noted to be thin and more elastic than the norm, suggestive of possible connective tissue disorder with plan for follow-up evaluation for Christofer-Danlos in the period. Postoperative course was uncomplicated. Patient was discharge to home on POD#2. Rh positive. Routine discharge instructions were given. - ALLERGIES Allergies/Adverse Reactions: Allergies Allergy/AdvReac Type Severity Reaction Status Date / Time Sulfa (Sulfonamide Allergy Unknown Verified 08/17/20 10:06 Antibiotics) - MEDICATIONS Home Medications: Ambulatory Orders Medication Instructions Recorded Confirmed Acetaminophen [Acetaminophen Extra 1,000 mg PO Q8H PRN #60 tab 08/22/20 Strength] Docusate Sodium 100Mg Capsule 100 - 200 mg PO BID PRN #60 cap 08/22/20 [Colace 100Mg Capsule] Ibuprofen [Motrin] 600 mg PO Q6H PRN #60 tab 08/22/20 oxyCODONE [Roxicodone] 2.5 - 5 mg PO Q4H PRN #24 tab 08/22/20 - LABS Result Diagrams: 08/21/20 05:28 - FOLLOW UP Follow Up: [address] Moore - TIME SPENT Time Spent in Discharge (Minutes): 30
== END 2020-08-22 11:15 | disposition home or self-care (01) | DRG 787 ==
LOC: FBP 05:28
PROVIDERS: ADMIT Obstetrics & Gynecology; ATTEND Obstetrics & Gynecology
PROC: 10D00Z1 Extraction of Products of Conception, Low, Open Approach (ICD-10-PCS; principal; 2020-08-20 07:30)
DX: O34.523 Maternal care for prolapse of gravid uterus, third trimester (principal); Q79.60 Ehlers-Danlos syndrome, unspecified; O99.892 Other specified diseases and conditions complicating childbirth; O36.8930 Maternal care for other specified fetal problems, third trimester, not applicable or unspecified; Z37.0 Single live birth; Z3A.39 39 weeks gestation of pregnancy; Z87.74 Personal history of (corrected) congenital malformations of heart and circulatory system; Z79.899 Other long term (current) drug therapy
CPT/HCPCS: 36415; 85025; 86850; 86900; 86901; 86920; A9270; J0131; J0690; J2274; J2300; J7120; Q0162

== ENCOUNTER 2021-08-19 10:37 | Emergency (ER) | payer OTHER ==
--- NOTE | 2021-08-19 11:57 | ED Physician Documentation ---
PD HPI HEAD INJURY - Stated complaint Stated Complaint: HEAD INJ - Chief complaint Chief Complaint: Trauma Hd/Nk - History obtained from History obtained from: Patient - Additional information Additional information: The patient comes to the emergency department chief complaint of head injury around 10:00 this morning. 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 There is a metal TV stand next to her, and patient fell into it, striking the right lateral aspect of her head. She did not lose consciousness. She states she felt a little dizzy initially and slightly nauseated. She states both of those symptoms have improved in the last 2 hours. She has some pain right in the area of the contact, but otherwise, no headache. She does have a little bit of light sensitivity. The patient is not on anticoagulants. She denies any neck pain. She is not hurt in any other way. No other complaints at this time. Review of Systems Ten Systems: 10 systems reviewed and negative Constitutional: reports: Reviewed and negative Eyes: reports: Reviewed and negative Ears: reports: Reviewed and negative Nose: reports: Reviewed and negative Throat: reports: Reviewed and negative Cardiac: reports: Reviewed and negative Respiratory: reports: Reviewed and negative GI: reports: Nausea : reports: Reviewed and negative Skin: reports: Reviewed and negative Musculoskeletal: reports: Reviewed and negative Neurologic: reports: Head injury Psychiatric: reports: Reviewed and negative Endocrine: reports: Reviewed and negative Immunocompromised: reports: Reviewed and negative PD PAST MEDICAL HISTORY - Past Medical History Past Medical History: No Cardiovascular: Other Respiratory: None Neuro: None Endocrine/Autoimmune: None GI: GERD : None Derm: None - Past Surgical History Past Surgical History: No /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 - Present Medications Home Medications: Ambulatory Orders Medication Instructions Recorded Confirmed No Known Home Medications 08/19/21 08/19/21 - Allergies Allergies/Adverse Reactions: Allergies Allergy/AdvReac Type Severity Reaction Status Date / Time Sulfa (Sulfonamide Allergy Unknown Verified 08/19/21 10:47 Antibiotics) - Social History Does the pt smoke?: No Smoking Status: Never smoker Does the pt drink ETOH?: No Does the pt have substance abuse?: No - Immunizations Immunizations are current?: Yes PD ED PE NORMAL - Vitals Vital signs reviewed: Yes - General General: Alert and oriented X 3, No acute distress, Well developed/nourished - HEENT HEENT: PERRL, EOMI, Moist mucous membranes, Other (Focused tenderness right superior parietal area with approximately 2 cm diameter area of swelling and mild contusion. No bony deformity. No other trauma) - Neck Neck: Supple, no meningeal sign, No bony TTP - Respiratory Respiratory: No respiratory distress - Derm Derm: Normal color, Warm and dry, No rash - Extremities Extremities: No deformity - Neuro Neuro: Alert and oriented X 3, data technical lead 2-12 intact, Normal speech, Other (Grossly intact) - Psych Psych: Normal mood, Normal affect Results - Vitals Vitals: Vital Signs - 24 hr 08/19/21 10:44 Temperature 36.3 C L Heart Rate 72 Respiratory 14 Rate Blood Pressure 128/80 O2 Saturation 100 Oxygen O2 Source Room air PD MEDICAL DECISION MAKING - ED course Complexity details: considered differential, d/w patient ED course: The patient was actually fairly well-appearing, and I discussed with her that she does have a contusion of her scalp. At this point in time, it has been 2 hours since the injury and the patient's symptoms are actually improving. She is not anticoagulated and she is young, and I feel her risk for intracranial hemorrhage, based on the nature of this injury, is very low. We have discussed home management of the symptoms, as well as the usual indications for return. Departure - Departure Disposition: 01 Home, Self Care Clinical Impression: Scalp contusion Qualifiers: Encounter type: initial encounter Qualified Code(s): S00.03XA - Contusion of scalp, initial encounter Closed head injury Qualifiers: Encounter type: initial encounter Qualified Code(s): S09.90XA - Unspecified injury of head, initial encounter Condition: Stable Instructions: ED Head Injury Closed, ED Contusion Scalp
[2021-08-19 12:08] VITALS: BP 120/62
== END 2021-08-19 12:08 | disposition home or self-care (01) ==
LOC: ED 10:37
DX: S00.03XA Contusion of scalp, initial encounter (principal); W03.XXXA Other fall on same level due to collision with another person, initial encounter; Y93.89 Activity, other specified; Y99.0 Civilian activity done for income or pay
CPT/HCPCS: 1040M; 99281; 99282

== ENCOUNTER 2021-10-17 11:41 | Emergency (ER) | payer OTHER ==
[2021-10-17] MEDS ORDERED: SODIUM CHLORIDE 0.9% 1,000 ML IV STA (12:03)
[2021-10-17 12:17] LABS: BILIRUBIN,URINE NEGATIVE (NEGATIVE); GLUCOSE, URINE (UA) NEGATIVE (NEGATIVE); KETONES,URINE (UA) NEGATIVE (NEGATIVE); LEUKOCYTE ESTERASE, URINE NEGATIVE (NEGATIVE); NITRITE,URINE NEGATIVE (NEGATIVE); OCCULT BLOOD,URINE NEGATIVE (NEGATIVE); PH,URINE 6.5 PH (5.0-7.5); PROTEIN,URINE NEGATIVE (NEGATIVE); UROBILINOGEN,URINE 0.2 (NORMAL) E.U./dL (NORMAL)
[2021-10-17 12:19] LABS: CLARITY,URINE CLEAR (CLEAR)
[2021-10-17 12:22] LABS: CALCIUM 9.5 mg/dL (8.5-10.3); CREATININE 0.4 mg/dL (0.4-1.0); POTASSIUM 3.4 mmol/L (3.5-5.0)
[2021-10-17] MEDS ORDERED: METOCLOPRAMIDE 10 MG/2 ML VIAL IVP STA (12:22)
--- NOTE | 2021-10-17 12:23 | ED Physician Documentation ---
History of Present Illness - Stated complaint Stated Complaint: FEMALE - Chief complaint Chief Complaint: General - History obtained from History obtained from: Patient - Additonal information Additional information: 31-year-old otherwise healthy G3, P2 at 7 weeks gestation with 3 days of vomiting. Has not tried any meds. No associated pain, diarrhea, cramping, bleeding or fluid loss. Review of Systems Constitutional: denies: Fever, Chills GI: reports: Nausea, Vomiting. 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 - Present Medications Home Medications: Ambulatory Orders Medication Instructions Recorded Confirmed Metoclopramide [Reglan] 10 mg PO Q6H PRN #20 tablet 10/17/21 Pnv No.95/Ferrous Fum/Folic AC 1 each PO DAILY 10/17/21 10/17/21 [ Tablet] - Allergies Allergies/Adverse Reactions: Allergies Allergy/AdvReac Type Severity Reaction Status Date / Time Sulfa (Sulfonamide Allergy Unknown Verified 10/17/21 11:47 Antibiotics) - Social History Does the pt smoke?: No Smoking Status: Never smoker Does the pt drink ETOH?: No Does the pt have substance abuse?: No - Immunizations Immunizations are current?: Yes PD ED PE NORMAL - Vitals Vital signs reviewed: Yes - General General: Alert and oriented X 3, No acute distress - Abdomen Abdomen: Normal bowel sounds, Soft, Non tender - Female Female : Other (Bedside ultrasound demonstrates single live intrauterine with heart tones) - Back Back: No CVA TTP, No spinal TTP - Derm Derm: No rash - Neuro Neuro: Alert and oriented X 3, Normal speech Results - Vitals Vitals: Vital Signs - 24 hr 10/17/21 11:47 Temperature 36.7 C Heart Rate 80 Respiratory 18 Rate Blood Pressure 117/70 O2 Saturation 97 Oxygen O2 Source Room air - Labs Labs: Laboratory Tests 10/17/21 10/17/21 12:00 12:10 Sodium 133 L Potassium 3.4 L Chloride 100 L Carbon Dioxide 23 Anion Gap 10.0 BUN 10 Creatinine 0.4 Estimated GFR (MDRD) 187 Glucose 91 Calcium 9.5 Urine Color YELLOW Urine Clarity CLEAR Urine pH 6.5 Ur Specific Dilliner 1.020 Urine Protein NEGATIVE Urine Glucose (UA) NEGATIVE Urine Ketones NEGATIVE Urine Occult Blood NEGATIVE Urine Nitrite NEGATIVE Urine Bilirubin NEGATIVE Urine Urobilinogen 0.2 (NORMAL) Ur Leukocyte Esterase NEGATIVE Ur Microscopic Review NOT INDICATED Urine Culture Comments NOT INDICATED PD MEDICAL DECISION MAKING - ED course ED course: 31-year-old G3, P2 at 7 weeks gestation presents with hyperemesis gravidarum. Work-up demonstrates normal specific gravity in her urine and no ketonuria. Mild hyponatremia and hypokalemia. She was given a liter of saline and some oral potassium repletion which after the administration of IV Reglan she tolerated well and requested discharge. Departure - Departure Disposition: 01 Home, Self Care Clinical Impression: Hyperemesis gravidarum Condition: Good Record reviewed to determine appropriate education?: Yes Instructions: ED Preg Morning Sickness Prescriptions: Metoclopramide [Reglan] 10 mg PO Q6H PRN #20 tablet PRN Reason: nausea or headache Comments: [facility] [place]. Return for new or worsening symptoms. Follow-up with new OB as scheduled.
[2021-10-17] MEDS ORDERED: POTASSIUM CITRATE 5 MEQ TABLET PO STA (12:44)
[2021-10-17 13:15] VITALS: BP 102/66
== END 2021-10-17 13:14 | disposition home or self-care (01) ==
LOC: ED 11:41
DX: O21.0 Mild hyperemesis gravidarum (principal); Z3A.01 Less than 8 weeks gestation of pregnancy
CPT/HCPCS: 36415; 80048; 81003; 96361; 96374; 99282; 99283; A9270; J2765; 81001; 87086

== ENCOUNTER 2022-04-19 19:24 | Emergency (ER) | payer OTHER ==
--- OUTSIDE RECORDS SUMMARY | 2022-04-19 19:30 | EXTERNAL MEDICAL SUMMARY RPT | Continuity of Care Document ---
:1990 Author Organization [facility] Address [address] [place] [address] Phone Allergies No information. Encounters No information. Functional Status No information. Immunizations No information. Medications No information. Problems No information. Procedures No information. Results/Labs test date author facility value unit interpret ation Result panel 1 (unknown) (no (unknown) (unknown) 08/20/20 39 6 lb (units (unknown) date) 8 oz Female unknown) live - full term (unknown) (no (unknown) (unknown) [facility] (units (unknown) date) unknown) (unknown) (no (unknown) (unknown) (no value) (units (unk nown) date) unknown) (unknown) (no (unknown) (unknown) 04/29/18 40 12 7 (units (unknown) date) lb 8 oz Male unknown) vaginal live - full term (unknown) (no (unknown) (unknown) Helena and Miguel (units (unknown) date) return today for unknown) her FRANTZ visit now at 15+ 6 weeks (unknown) (no (unknown) (unknown) Doc (units (unknown) date) returns today for unknown) her FRANTZ visit now at 20+ 6 weeks (unknown) (no (unknown) (unknown) Helena presents (units ( unknown) date) today for her unknown) initial OB visit now at 11 weeks 5 days (unknown) (no (unknown) (unknown) N No no 156 16 (units (unknown) date) N/A absent 4 wk unknown) (unknown) (no (unknown) (unknown) N No no 166 12 (units (unknown) date) N/A absent 4 wks unknown) (unknown) (no (unknown) (unknown) N Yes no 152 21 (units (unknown) date) N/A absent 4 wks unknown) (unknown) (no (unknown) (unknown) Severe pelvic (units ( unknown) date) pain and unknown) instability in late necessitated a (unknown) (no (unknown) (unknown) Severe pelvic (units ( unknown) date) prolapse unknown) requiring surgical repair. (unknown) (no (unknown) (unknown) (no value) (units (unk nown) date) unknown) (unknown) (no (unknown) (unknown) (+16 lb) 108/64 N (units (unknown) date) unknown) (unknown) (no (unknown) (unknown) (+3 lb) 118/64 N (units (unknown) date) unknown) (unknown) (no (unknown) (unknown) (+8 lb) 110/64 N (units (unknown) date) unknown) (unknown) (no (unknown) (unknown) 11/14/21 (units (unkno wn) date) unknown) (unknown) (no (unknown) (unknown) 12/13/21 (units (unkno wn) date) unknown) (unknown) (no (unknown) (unknown) 01/17/22 (units (unkno wn) date) unknown) (unknown) (no (unknown) (unknown) 02/21/22 (units (unkno wn) date) unknown) (unknown) (no (unknown) (unknown) 11w 5d 111 lb (units ( unknown) date) unknown) (unknown) (no (unknown) (unknown) 13:25 (units (unkno wn) date) unknown) (unknown) (no (unknown) (unknown) 15w 6d 116 lb (units ( unknown) date) unknown) (unknown) (no (unknown) (unknown) 20w 6d 124 lb (units ( unknown) date) unknown) (unknown) (no (unknown) (unknown) [place], [place] (units ( unknown) date) [id number] unknown) (unknown) (no (unknown) (unknown) Anxiety (units (unkno wn) date) unknown) (unknown) (no (unknown) (unknown) Cirrhosis (units (unkn own) date) unknown) (unknown) (no (unknown) (unknown) Current Estimate (units (unknown) date) 05/31/22 LMP unknown) (Certain) 25w 6d (unknown) (no (unknown) (unknown) Diabetes mellitus (units (unknown) date) unknown) (unknown) (no (unknown) (unknown) Draft (units (unkno wn) date) unknown) (unknown) (no (unknown) (unknown) Estimated (units (unkn own) date) Delivery Date unknown) Method Current (unknown) (no (unknown) (unknown) [facility]) (unknown) (no (unknown) (unknown) History of heart (units (unknown) date) disease unknown) (unknown) (no (unknown) (unknown) Hives (units (unkno wn) date) unknown) (unknown) (no (unknown) (unknown) Hyperlipidemia (units (unknown) date) unknown) (unknown) (no (unknown) (unknown) OB Office Visit (units (unknown) date) unknown) (unknown) (no (unknown) (unknown) Other Estimates (units (unknown) date) 06/01/22 unknown) Ultrasound #1 25w 5d (unknown) (no (unknown) (unknown) Rheumatoid (units (unk nown) date) arthritis unknown) (unknown) (no (unknown) (unknown) jw (units (unkno wn) date) unknown) (unknown) (no (unknown) (unknown) (no value) (units (unk nown) date) unknown) (unknown) (no (unknown) (unknown) Genetic (units (unkn own) date) Screening/Teratolo unknown) gy Counseling - Includes patient, baby's father, or (unknown) (no (unknown) (unknown) +Covid Dx 11/01/21 (units (unknown) date) unknown) (unknown) (no (unknown) (unknown) -?-?-?-?-?-?-?-?- (units (unknown) date) ?-?-?-?- unknown) (unknown) (no (unknown) (unknown) 02/21/22 (units (unkno wn) date) unknown) (unknown) (no (unknown) (unknown) 02/21/22] (units (unkn own) date) unknown) (unknown) (no (unknown) (unknown) 25.6 wk OB check (units (unknown) date) unknown) (unknown) (no (unknown) (unknown) [id number] (units (unkno wn) date) unknown) (unknown) (no (unknown) (unknown) 6 months other (units (unknown) date) Mila unknown) (unknown) (no (unknown) (unknown) Abnormal lab (units (u nknown) date) values 1st unknown) trimester: discussed (unknown) (no (unknown) (unknown) Add'l Plan (units (unk nown) date) Details unknown) (unknown) (no (unknown) (unknown) Age/Sex: 31 / F (units (unknown) date) Date of Service: unknown) (unknown) (no (unknown) (unknown) Allergies (units (unkn own) date) unknown) (unknown) (no (unknown) (unknown) Anesthesia (units (unk nown) date) unknown) (unknown) (no (unknown) (unknown) Aneuploidy (units (unk nown) date) Screening Offered: unknown) Declined (unknown) (no (unknown) (unknown) Anticipated (units (un known) date) course of unknown) care: discussed (unknown) (no (unknown) (unknown) Anxiety and (units (un known) date) depression (-2012) unknown) (unknown) (no (unknown) (unknown) Assessment and (units (unknown) date) Plan unknown) (unknown) (no (unknown) (unknown) Attending Dr: (units ( unknown) date) Ash Villafuerte MD unknown) (unknown) (no (unknown) (unknown) BMI 25.6 (units (unkno wn) date) unknown) (unknown) (no (unknown) (unknown) BP 118/70 (units (unkn own) date) unknown) (unknown) (no (unknown) (unknown) (units (unkno wn) date) Plan/Preferences unknown) (unknown) (no (unknown) (unknown) Planning (units (unknown) date) unknown) (unknown) (no (unknown) (unknown) Blood Pressure (units (unknown) date) Location Rt unknown) brachial (unknown) (no (unknown) (unknown) Blood (units (unkno wn) date) transfusions?: yes unknown) (Never had but would accept) (unknown) (no (unknown) (unknown) Breastfeed Preg (units (unknown) date) Comp Name unknown) (unknown) (no (unknown) (unknown) delivery (units (unknown) date) delivered unknown) (unknown) (no (unknown) (unknown) Concussion (units (unk nown) date) unknown) (unknown) (no (unknown) (unknown) Connective tissue (units (unknown) date) disorder unknown) (unknown) (no (unknown) (unknown) Current (units (unknown) date) History unknown) (unknown) (no (unknown) (unknown) : 1990 (units (unknown) date) Acct:[id number] unknown) (unknown) (no (unknown) (unknown) Date (units (unkno wn) date) unknown) (unknown) (no (unknown) (unknown) Date of positive (units (unknown) date) home unknown) test: 09/19/21 (unknown) (no (unknown) (unknown) Del. Date (units (unkn own) date) GA/Weeks Labor unknown) Lgth Wt Sex Route Outcome Anesthesia Place (unknown) (no (unknown) (unknown) Delivery Date: (units (unknown) date) 08/20/20 Last unknown) Updated by: Sade Valdez R.N. (unknown) (no (unknown) (unknown) Delivery Date: (units (unknown) date) 04/29/18 Last unknown) Updated by: Sade Valdez R.N. (unknown) (no (unknown) (unknown) Delv (units (unkno wn) date) unknown) (unknown) (no (unknown) (unknown) Denies other (units (u nknown) date) unknown) (unknown) (no (unknown) (unknown) Denies over the (units (unknown) date) counter unknown) medications, Denies alcohol, Denies illicit drugs and (unknown) (no (unknown) (unknown) Depression: (units (un known) date) discussed unknown) (unknown) (no (unknown) (unknown) Dept at (units (unkno wn) date) . unknown) (unknown) (no (unknown) (unknown) Diet and Exercise (units (unknown) date) unknown) (unknown) (no (unknown) (unknown) Disabling (units (unkn own) date) abdominal/pelvic unknown) pain with second after @ 26 weeks; ? (unknown) (no (unknown) (unknown) Documented By: (units (unknown) date) Ash Villafuerte MD unknown) 02/21/22 1324 (unknown) (no (unknown) (unknown) NAHED Calculator (units (unknown) date) unknown) (unknown) (no (unknown) (unknown) EGA Weight BP (units ( unknown) date) UGlucose unknown) (unknown) (no (unknown) (unknown) Yoshi. (units (unkno wn) date) Unfortunately the unknown) MFM group refused to monitor the referral unless it (unknown) (no (unknown) (unknown) Expected Delivery (units (unknown) date) Route/Plan unknown) (unknown) (no (unknown) (unknown) Family History (units (unknown) date) (Reviewed 02/21/22 unknown) @ 13:26 by Toño Mcconnell RN) (unknown) (no (unknown) (unknown) Father of Baby: (units (unknown) date) same unknown) (unknown) (no (unknown) (unknown) First Trimester (units (unknown) date) Education unknown) Checklist (unknown) (no (unknown) (unknown) (units (unkno wn) date) unknown) (unknown) (no (unknown) (unknown) Genetic Screening (units (unknown) date) unknown) (unknown) (no (unknown) (unknown) Genetic Screening (units (unknown) date) + Counseling unknown) (unknown) (no (unknown) (unknown) Grandfather (units (un known) date) Aneurysm unknown) (unknown) (no (unknown) (unknown) Grandfather (units (un known) date) unknown) Hypertension (unknown) (no (unknown) (unknown) Grandmother (units (un known) date) COPD unknown) (chronic obstructive pulmonary disease) (unknown) (no (unknown) (unknown) 3 (units (unkn own) date) Multiple births 0 unknown) (unknown) (no (unknown) (unknown) H/O knee surgery (units (unknown) date) (-2009) unknown) (unknown) (no (unknown) (unknown) HIV risk (units (unkno wn) date) evaluation: low unknown) risk (unknown) (no (unknown) (unknown) Health Center (units ( unknown) date) Education unknown) (unknown) (no (unknown) (unknown) Health center (units ( unknown) date) information: unknown) nature of practice discussed, personnel (unknown) (no (unknown) (unknown) Height 5 ft (units (un known) date) unknown) (unknown) (no (unknown) (unknown) Hepatitis C risk (units (unknown) date) evaluation: low unknown) risk (unknown) (no (unknown) (unknown) History of (units (unk nown) date) Hepatitis B: No unknown) (unknown) (no (unknown) (unknown) History of (units (unk nown) date) Hepatitis C: No unknown) (unknown) (no (unknown) (unknown) History of (units (unk nown) date) appendectomy unknown) () (unknown) (no (unknown) (unknown) History of (units (unk nown) date) tonsillectomy unknown) () (unknown) (no (unknown) (unknown) History of (units (unk nown) date) uterine prolapse unknown) () (unknown) (no (unknown) (unknown) Hospital: (units (u nknown) date) unknown) (unknown) (no (unknown) (unknown) Miguel (units (unknown) date) unknown) (unknown) (no (unknown) (unknown) Hx # (units (u nknown) date) Pregnancies 0 unknown) Elective abortions (unknown) (no (unknown) (unknown) Hx # Term (units (unkn own) date) Pregnancies 2 unknown) Ectopic pregnancies (unknown) (no (unknown) (unknown) Hx pelvic (units (unkn own) date) prolapse (uterine, unknown) cystocele, possible rectocele) with extensive (unknown) (no (unknown) (unknown) Infant will be (units (unknown) date) adopted?: no unknown) (unknown) (no (unknown) (unknown) Infection History (units (unknown) date) unknown) (unknown) (no (unknown) (unknown) Infectious (units (unk nown) date) Disease Education unknown) (unknown) (no (unknown) (unknown) Infectious (units (unk nown) date) disease exposure: unknown) chicken pox immunity discussed, hepatitis risk (unknown) (no (unknown) (unknown) Initial Weight: (units (unknown) date) 108 lb unknown) (unknown) (no (unknown) (unknown) Initials (units (unkno wn) date) unknown) (unknown) (no (unknown) (unknown) Intake (units (unkno wn) date) unknown) (unknown) (no (unknown) (unknown) Intake Clinical (units (unknown) date) Staff unknown) (unknown) (no (unknown) (unknown) Intake Note: (units (u nknown) date) unknown) (unknown) (no (unknown) (unknown) Intake performed (units (unknown) date) by: Toño Mcconnell unknown) (unknown) (no (unknown) (unknown) Live with someone (units (unknown) date) with TB or exposed unknown) to TB: No (unknown) (no (unknown) (unknown) Loc: [facility] (units (unkno wn) date) unknown) (unknown) (no (unknown) (unknown) MFM to co-manage (units (unknown) date) this . 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 also detected a heart murmur (unknown) (no (unknown) (unknown) Marginal placenta (units (unknown) date) previa noted on 20 unknown) week anatomy scan; re-scan third trimester (unknown) (no (unknown) (unknown) Marital status: (units (unknown) date) unknown) (unknown) (no (unknown) (unknown) Medical History (units (unknown) date) (Reviewed 02/21/22 unknown) @ 13:26 by Toño Mcconnell RN) (unknown) (no (unknown) (unknown) Medications (units (un known) date) unknown) (unknown) (no (unknown) (unknown) Mitral valve (units (u nknown) date) prolapse unknown) (unknown) (no (unknown) (unknown) Mother (units (unkno wn) date) Hypertension unknown) (unknown) (no (unknown) (unknown) Notes (units (unkno wn) date) unknown) (unknown) (no (unknown) (unknown) Number of Living (units (unknown) date) Children 2 unknown) (unknown) (no (unknown) (unknown) Number of (units (unkn own) date) fetuses:: Single unknown) (unknown) (no (unknown) (unknown) Nutrition and (units ( unknown) date) weight gain unknown) counseling: special diet: discussed (unknown) (no (unknown) (unknown) OB Visit Log (units (u nknown) date) unknown) (unknown) (no (unknown) (unknown) PFSH (units (unkno wn) date) unknown) (unknown) (no (unknown) (unknown) Para 2 (units (unkno wn) date) Spontaneous unknown) abortions (unknown) (no (unknown) (unknown) Partner history (units (unknown) date) of STD: denies hx unknown) (unknown) (no (unknown) (unknown) Partner history (units (unknown) date) of genital herpes: unknown) No (unknown) (no (unknown) (unknown) Partner: Miguel (units (unknown) date) Mai unknown) (unknown) (no (unknown) (unknown) Past Pregnancies (units (unknown) date) unknown) (unknown) (no (unknown) (unknown) Patient's age 36 (units (unknown) date) years or older as unknown) of estimated date of delivery: No (unknown) (no (unknown) (unknown) Patient: (units (unkno wn) date) Helena Reed unknown) MR#: [id number] (unknown) (no (unknown) (unknown) 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: AMINATA (units (unknown) date) [place] unknown) (unknown) (no (unknown) (unknown) [place], [place] 19 (units (unknown) date) unknown) (unknown) (no (unknown) (unknown) Personal history (units (unknown) date) of STD: denies hx unknown) (unknown) (no (unknown) (unknown) Personal history (units (unknown) date) of genital herpes: unknown) No (unknown) (no (unknown) (unknown) Position Sitting (units (unknown) date) unknown) (unknown) (no (unknown) (unknown) Possible (units (unkno wn) date) connective tissue unknown) disorder suspected due to tissue consistency at the (unknown) (no (unknown) (unknown) History (units (unknown) date) unknown) (unknown) (no (unknown) (unknown) type:: (units (unknown) date) Other Normal unknown) (unknown) (no (unknown) (unknown) (units (unkno wn) date) Education unknown) (unknown) (no (unknown) (unknown) Initial (units (unknown) date) Assessment unknown) (unknown) (no (unknown) (unknown) Specific (units (unknown) date) Issues/Plans unknown) (unknown) (no (unknown) (unknown) Testing: (units (unknown) date) discussed unknown) (unknown) (no (unknown) (unknown) Visit (units (unknown) date) unknown) (unknown) (no (unknown) (unknown) (units (unkno wn) date) education packet: unknown) symptoms, Vitamins and iron, Diet and (unknown) (no (unknown) (unknown) Primary Care (units (u nknown) date) Provider: AMINATA Felton unknown) [place] (unknown) (no (unknown) (unknown) Primary Ob (units (unk nown) date) Provider: unknown) Ash Villafuerte (unknown) (no (unknown) (unknown) Prior (units (unkno wn) date) GBS-Infected unknown) child: No (unknown) (no (unknown) (unknown) Providers (units (unkn own) date) unknown) (unknown) (no (unknown) (unknown) Reason For Visit (units (unknown) date) unknown) (unknown) (no (unknown) (unknown) Recent travel (units ( unknown) date) outside of unknown) country?: No (unknown) (no (unknown) (unknown) Recurrent (units (unkn own) date) loss or unknown) a stillbirth: No (unknown) (no (unknown) (unknown) Repeat (units (unknown) date) section unknown) (unknown) (no (unknown) (unknown) Reports (units (unkno wn) date) Congenital Heart unknown) Defect (pt ) and Reports Mental Retardation/Autism (unknown) (no (unknown) (unknown) Safety (units (unkno wn) date) unknown) (unknown) (no (unknown) (unknown) Sauna/hot tub (units ( unknown) date) use, Dental care, unknown) Travel, Seatbelt use and Influenza vaccine (no (unknown) (no (unknown) (unknown) Signed By: (units (unk nown) date) unknown) (unknown) (no (unknown) (unknown) Smoking Status: (units (unknown) date) Never smoker unknown) (unknown) (no (unknown) (unknown) Social History (units (unknown) date) unknown) (unknown) (no (unknown) (unknown) Sulfa (units (unkno wn) date) (Sulfonamide unknown) Antibiotics) Allergy (Intermediate, Verified 02/21/22 13:24) (unknown) (no (unknown) (unknown) Support (units (unkno wn) date) Person(s):: Miguel unknown) (unknown) (no (unknown) (unknown) Surgical History (units (unknown) date) (Reviewed 02/21/22 unknown) @ 13:26 by Toño Mcconnell RN) (unknown) (no (unknown) (unknown) Surrogate (units (unkn own) date) ?: no unknown) (unknown) (no (unknown) (unknown) Symptoms since (units (unknown) date) LMP: Reports unknown) amenorrhea, nausea, vomiting, fatigue and breast (unknown) (no (unknown) (unknown) Tdap status: (units (u nknown) date) immunized unknown) (unknown) (no (unknown) (unknown) Teratogen (units (unkn own) date) Exposures since unknown) LMP/Conception: Denies prescription medications, (unknown) (no (unknown) (unknown) Testing Education (units (unknown) date) unknown) (unknown) (no (unknown) (unknown) Testing education (units (unknown) date) completed: [place] unknown) bifida testing (unknown) (no (unknown) (unknown) This note may (units ( unknown) date) have been all or unknown) partially generated using voice recognition (unknown) (no (unknown) (unknown) Tobacco + (units (unkn own) date) Substance Use unknown) (unknown) (no (unknown) (unknown) Tobacco Status (units (unknown) date) unknown) (unknown) (no (unknown) (unknown) Type(s) of (units (unk nown) date) exercise: walking unknown) (unknown) (no (unknown) (unknown) UProtein Movement (units (unknown) date) PreLabor FHR Fndl unknown) Ht Pres Edema Cerv Exam US/Comment Next Appt (unknown) (no (unknown) (unknown) Varicella/chicken (units (unknown) date) pox status: unknown) previous disease (unknown) (no (unknown) (unknown) Visit Date: (units (un known) date) 11/14/21 Last unknown) Updated by: Ash Villafuerte MD (unknown) (no (unknown) (unknown) Visit Date: (units (un known) date) 12/13/21 Last unknown) Updated by: Ash Villafuerte MD (unknown) (no (unknown) (unknown) Visit Date: (units (un known) date) 01/17/22 Last unknown) Updated by: Ash Villafuerte MD (unknown) (no (unknown) (unknown) Visit Reasons: OB (units (unknown) date) CHECK unknown) (unknown) (no (unknown) (unknown) Vitals (units (unkno wn) date) unknown) (unknown) (no (unknown) (unknown) WG (units (unkno wn) date) unknown) (unknown) (no (unknown) (unknown) Weight 131 lb 1 (units (unknown) date) oz unknown) (unknown) (no (unknown) (unknown) [place] teeth (units (u nknown) date) extracted () unknown) (unknown) (no (unknown) (unknown) Zika virus (units (unk nown) date) exposure: No unknown) (unknown) (no (unknown) (unknown) a normal sized (units (unknown) date) vaginally, unknown) she had significant uterovaginal prolapse (unknown) (no (unknown) (unknown) advised to let us (units (unknown) date) know if there are unknown) any further delays in getting the (unknown) (no (unknown) (unknown) ahead. If Christofer (units (unknown) date) Danlos is unknown) confirmed, MFM consult will be obtained. Patient (unknown) (no (unknown) (unknown) alcohol intake: (units (unknown) date) former unknown) (unknown) (no (unknown) (unknown) amount of nausea (units (unknown) date) with no appetite unknown) and on a daily basis she takes Zofran to (unknown) (no (unknown) (unknown) and the patient (units (unknown) date) has been referred unknown) for echocardiography. 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 unknown) (unknown) (no (unknown) (unknown) behavioral issues (units (unknown) date) with children unknown) (concussion 08/27) (unknown) (no (unknown) (unknown) caffeine: Yes (units ( unknown) date) (Aware of 200mg unknown) limit) (unknown) (no (unknown) (unknown) carbon monox (units (u nknown) date) detector in home: unknown) Yes (unknown) (no (unknown) (unknown) connective tissue (units (unknown) date) disorder due to unknown) the fragile consistency of the tissues (unknown) (no (unknown) (unknown) control the (units (un known) date) nausea. She also unknown) has significant loss of energy levels. 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 Results of the [facility] genetic testing (unknown) (no (unknown) (unknown) discharge. She was (units (unknown) date) seen by unknown) rheumatology but the solution professional was unable to do (unknown) (no (unknown) (unknown) discussed, (units (unk nown) date) tuberculosis unknown) exposure discussed, CMV discussed, Toxoplasmosis (unknown) (no (unknown) (unknown) do you feel safe (units (unknown) date) at home: Yes unknown) (unknown) (no (unknown) (unknown) during the past (units (unknown) date) year weight has: unknown) decreased > 10 lbs (unknown) (no (unknown) (unknown) education level: (units (unknown) date) college unknown) (unknown) (no (unknown) (unknown) encounter during (units (unknown) date) the course of unknown) surgery. The patient has had no formal testing (unknown) (no (unknown) (unknown) fire extinguisher (units (unknown) date) in home: Yes unknown) (unknown) (no (unknown) (unknown) firearms in home: (units (unknown) date) Yes firearms unknown) unloaded and locked: Yes (unknown) (no (unknown) (unknown) flu shot, J+J (units ( unknown) date) covid x1) unknown) (unknown) (no (unknown) (unknown) for Christofer-Danlos (units (unknown) date) syndrome but is unknown) currently waiting on approval of a referral to (unknown) (no (unknown) (unknown) frequency: daily (units (unknown) date) unknown) (unknown) (no (unknown) (unknown) genes tested. (units ( unknown) date) Patient also has unknown) had echocardiogram performed which was also (unknown) (no (unknown) (unknown) genetic testing (units (unknown) date) for diagnosis of unknown) Christofer-Danlos syndrome and her primary care (unknown) (no (unknown) (unknown) gestational age. (units (unknown) date) She has not yet unknown) felt movement but denies (unknown) (no (unknown) (unknown) gestational age. (units (unknown) date) She is doing well unknown) and has started feeling more movement. She (unknown) (no (unknown) (unknown) gestational age. (units (unknown) date) The patient is unknown) doing reasonably well but having significant (unknown) (no (unknown) (unknown) had a 2nd (units (unkn own) date) which unknown) was delivered by primary section and at the (unknown) (no (unknown) (unknown) have occurred. If (units (unknown) date) there are any unknown) questions, please contact the Medical Records (unknown) (no (unknown) (unknown) hours a day and (units (unknown) date) participation of unknown) father in care and office visits (unknown) (no (unknown) (unknown) household (units (unkn own) date) members: spouse, unknown) family (sister) and children (unknown) (no (unknown) (unknown) housing: house (units (unknown) date) unknown) (unknown) (no (unknown) (unknown) importance of (units (u nknown) date) diagnosis if she unknown) has Christofer-Danlos which would prompt MFM referral (unknown) (no (unknown) (unknown) in . (units (u nknown) date) unknown) (unknown) (no (unknown) (unknown) interest. Twenty (units (unknown) date) week anatomy scan unknown) is normal with the infant at the 26th (unknown) (no (unknown) (unknown) is however (units (unk nown) date) continuing to have unknown) pelvic and lower abdominal discomfort much as she (unknown) (no (unknown) (unknown) lives (units (unkno wn) date) independently: Yes unknown) (unknown) (no (unknown) (unknown) marital status: (units (unknown) date) unknown) (unknown) (no (unknown) (unknown) may occur. (units (unk nown) date) Occasional unknown) wrong-word or 'sound-alike' substitutions may have (unknown) (no (unknown) (unknown) metoclopramide (units (unknown) date) [From Reglan] unknown) Adverse Reaction (Mild, Verified 02/21/22 13:24) (unknown) (no (unknown) (unknown) musculoskeletal (units (unknown) date) unknown) (unknown) (no (unknown) (unknown) none [place] (units (un known) date) unknown) (unknown) (no (unknown) (unknown) normal. Patient (units (unknown) date) is currently unknown) scheduled for her initial MFM consult to be (unknown) (no (unknown) (unknown) number of (units (unkn own) date) children: 2 unknown) (unknown) (no (unknown) (unknown) occupational (units (u nknown) date) status: employed unknown) (unknown) (no (unknown) (unknown) occurred due to (units (unknown) date) the inherent unknown) limitations of voice recognition software. Please (unknown) (no (unknown) (unknown) ondansetron 4 mg (units (unknown) date) disintegrating unknown) tablet 4 mg PO Q8H PRN nausea and vomiting #20 (unknown) (no (unknown) (unknown) patient has a (units ( unknown) date) significant unknown) obstetrical history in that after her 1st delivery of (unknown) (no (unknown) (unknown) patient is (units (unk nown) date) committed to unknown) moving forward with it despite maternal challenges (unknown) (no (unknown) (unknown) percentile insofar (units (unknown) date) as EFW. Posterior unknown) placenta w/ marginal placenta previa noted (unknown) (no (unknown) (unknown) performed January (units (unknown) date) 2021 have will unknown) await the results of the consultation with (unknown) (no (unknown) (unknown) pets and animals: (units (unknown) date) Yes (2 dogs, 1 unknown) fish.) (unknown) (no (unknown) (unknown) placental (units (unkn own) date) position at that unknown) time. Labor precautions reviewed and follow-up in 4 (unknown) (no (unknown) (unknown) precautions, (units (u nknown) date) Listeriosis unknown) prevention and Rubella Immunization (unknown) (no (unknown) (unknown) prenat.vits,kin,m (units (unknown) date) [id number] 1 unknown) tab PO DAILY 11/04/21 [History Confirmed (unknown) (no (unknown) (unknown) provider (units (unkno wn) date) initiated a unknown) referral to Maternal- Medicine at [facility] (unknown) (no (unknown) (unknown) read the note (units ( unknown) date) carefully and unknown) recognize, using context, where these substitutions (unknown) (no (unknown) (unknown) repair after 1st (units (unknown) date) unknown) (unknown) (no (unknown) (unknown) requested by her (units (unknown) date) solution professional unknown) returns negative results for the 89 individual (unknown) (no (unknown) (unknown) requiring surgical (units (unknown) date) reconstruction in unknown) [place], [place]. Following that delivery she (unknown) (no (unknown) (unknown) rheumatology (units (u nknown) date) consult done. unknown) Precautionary symptoms reviewed and follow-up will (unknown) (no (unknown) (unknown) rheumatology for (units (unknown) date) evaluation. This unknown) was not intended but the (unknown) (no (unknown) (unknown) seatbelt use: (units ( unknown) date) always unknown) (unknown) (no (unknown) (unknown) second hand (units (un known) date) exposure: Yes (As unknown) a child, but no longer) (unknown) (no (unknown) (unknown) software. (units (unkn own) date) Although every unknown) effort is made to edit content, [employer] professor errors (unknown) (no (unknown) (unknown) special nicolle (units ( unknown) date) needs: No unknown) (unknown) (no (unknown) (unknown) submitted today. (units (unknown) date) Twenty week unknown) anatomy scan ordered. Follow-up will be in 4 (unknown) (no (unknown) (unknown) substance use (units ( unknown) date) type: does not use unknown) (unknown) (no (unknown) (unknown) tabs 11/01/21 [Rx (units (unknown) date) Confirmed unknown) 02/21/22] (unknown) (no (unknown) (unknown) tenderness (units (unk nown) date) unknown) (unknown) (no (unknown) (unknown) time of ; (units (unknown) date) Rheumatology unknown) referral pending per her PCP on-base. Emphasized (unknown) (no (unknown) (unknown) time of surgery (units (unknown) date) the operating unknown) surgeon felt that the patient may have a (unknown) (no (unknown) (unknown) travel history: (units (unknown) date) over 6 months ago unknown) (unknown) (no (unknown) (unknown) walker. RANGEL (units (unk nown) date) suggested pt may unknown) have a connective tissue disorder based on findings (unknown) (no (unknown) (unknown) was sent by an (units (unknown) date) hoisting engineer. Will unknown) initiate a new referral for genetic testing (unknown) (no (unknown) (unknown) water heater temp (units (unknown) date) set < 120 deg: Yes unknown) (unknown) (no (unknown) (unknown) weeks or as (units (un known) date) needed. unknown) (unknown) (no (unknown) (unknown) weight gain, Fish (units (unknown) date) and mercury unknown) intake, Caffeine use, Exercise and activity, (unknown) (no (unknown) (unknown) well-balanced (units ( unknown) date) diet: about half unknown) the time (unknown) (no (unknown) (unknown) work/environmenta (units (unknown) date) l/hazards, Sexual unknown) activity, X-ray exposure, Medication use, (unknown) (no (unknown) (unknown) working smoke (units ( unknown) date) detector in home: unknown) Yes Result panel 2 (unknown) (no (unknown) (unknown) 08/20/20 39 6 lb (units (unknown) date) 8 oz Female unknown) live - full term (unknown) (no (unknown) (unknown) [place] [facility] (units (unknown) date) unknown) (unknown) (no (unknown) (unknown) (no value) (units (unk nown) date) unknown) (unknown) (no (unknown) (unknown) 04/29/18 40 12 7 (units (unknown) date) lb 8 oz Male unknown) vaginal live - full term (unknown) (no (unknown) (unknown) Doc (units (unknown) date) return today for unknown) her FRANTZ visit now at 15+ 6 weeks (unknown) (no (unknown) (unknown) Doc (units (unknown) date) returns today for unknown) her FRANTZ visit now at 20+ 6 weeks (unknown) (no (unknown) (unknown) Helena presents (units ( unknown) date) today for her unknown) initial OB visit now at 11 weeks 5 days (unknown) (no (unknown) (unknown) Helena returns (units (u nknown) date) today for her FRANTZ unknown) visit new a 25+ 6 weeks gestational age. (unknown) (no (unknown) (unknown) N No no 156 16 (units (unknown) date) N/A absent 4 wk unknown) (unknown) (no (unknown) (unknown) N No no 166 12 (units (unknown) date) N/A absent 4 wks unknown) (unknown) (no (unknown) (unknown) N Yes no 152 21 (units (unknown) date) N/A absent 4 wks unknown) (unknown) (no (unknown) (unknown) Qualifiers: (units (un known) date) unknown) (unknown) (no (unknown) (unknown) Severe pelvic (units ( unknown) date) pain and unknown) instability in late necessitated a (unknown) (no (unknown) (unknown) Severe pelvic (units ( unknown) date) prolapse unknown) requiring surgical repair. (unknown) (no (unknown) (unknown) Status: Acute (units ( unknown) date) unknown) (unknown) (no (unknown) (unknown) (no value) (units (unk nown) date) unknown) (unknown) (no (unknown) (unknown) (+16 lb) 108/64 N (units (unknown) date) unknown) (unknown) (no (unknown) (unknown) (+23 lb 1 oz) (units ( unknown) date) 118/70 unknown) (unknown) (no (unknown) (unknown) (+3 lb) 118/64 N (units (unknown) date) unknown) (unknown) (no (unknown) (unknown) (+8 lb) 110/64 N (units (unknown) date) unknown) (unknown) (no (unknown) (unknown) 11/14/21 (units (unkno wn) date) unknown) (unknown) (no (unknown) (unknown) 12/13/21 (units (unkno wn) date) unknown) (unknown) (no (unknown) (unknown) 01/17/22 (units (unkno wn) date) unknown) (unknown) (no (unknown) (unknown) 02/21/22 (units (unkno wn) date) unknown) (unknown) (no (unknown) (unknown) 02/21/22 1356 (units ( unknown) date) unknown) (unknown) (no (unknown) (unknown) 11w 5d 111 lb (units ( unknown) date) unknown) (unknown) (no (unknown) (unknown) 13:25 (units (unkno wn) date) unknown) (unknown) (no (unknown) (unknown) 15w 6d 116 lb (units (unknown) date) unknown) (unknown) (no (unknown) (unknown) 20w 6d 124 lb (units ( unknown) date) unknown) (unknown) (no (unknown) (unknown) 25w 6d 131 lb 1 (units (unknown) date) oz unknown) (unknown) (no (unknown) (unknown) [place], [place] (units ( unknown) date) [id number] unknown) (unknown) (no (unknown) (unknown) Anxiety (units (unkno wn) date) unknown) (unknown) (no (unknown) (unknown) Cirrhosis (units (unkn own) date) unknown) (unknown) (no (unknown) (unknown) Current Estimate (units (unknown) date) 05/31/22 LMP unknown) (Certain) 25w 6d (unknown) (no (unknown) (unknown) Diabetes mellitus (units (unknown) date) unknown) (unknown) (no (unknown) (unknown) Estimated (units (unkn own) date) Delivery Date unknown) Method Current (unknown) (no (unknown) (unknown) [facility]) (unknown) (no (unknown) (unknown) History of heart (units (unknown) date) disease unknown) (unknown) (no (unknown) (unknown) Hives (units (unkno wn) date) unknown) (unknown) (no (unknown) (unknown) Hyperlipidemia (units (unknown) date) unknown) (unknown) (no (unknown) (unknown) OB Office Visit (units (unknown) date) unknown) (unknown) (no (unknown) (unknown) Other Estimates (units (unknown) date) 06/01/22 unknown) Ultrasound #1 25w 5d (unknown) (no (unknown) (unknown) Rheumatoid (units (unk nown) date) arthritis unknown) (unknown) (no (unknown) (unknown) Signed (units (unkno wn) date) unknown) (unknown) (no (unknown) (unknown) Weeks of (units (unkno wn) date) gestation: 25 unknown) weeks Qualified Code(s): Z3A.25 - 25 weeks (unknown) (no (unknown) (unknown) Yes no 148 25 (units ( unknown) date) Uncertain absent 4 unknown) wks (unknown) (no (unknown) (unknown) jw (units (unkno wn) date) unknown) (unknown) (no (unknown) (unknown) (no value) (units (unk nown) date) unknown) (unknown) (no (unknown) (unknown) (1) Marginal (units (u nknown) date) placenta previa: unknown) (unknown) (no (unknown) (unknown) (2) History of (units (unknown) date) delivery, unknown) antepartum: (unknown) (no (unknown) (unknown) (3) : (units (unknown) date) unknown) (unknown) (no (unknown) (unknown) Genetic (units (unkn own) date) Screening/Teratolo unknown) gy Counseling - Includes patient, baby's father, or (unknown) (no (unknown) (unknown) +Covid Dx 11/01/21 (units (unknown) date) unknown) (unknown) (no (unknown) (unknown) -?-?-?-?-?-?-?-?- (units (unknown) date) ?-?-?-?- unknown) (unknown) (no (unknown) (unknown) 02/21/22 (units (unkno wn) date) unknown) (unknown) (no (unknown) (unknown) 02/21/22] (units (unkn own) date) unknown) (unknown) (no (unknown) (unknown) 25.6 wk OB check (units (unknown) date) unknown) (unknown) (no (unknown) (unknown) [id number] (units (unkno wn) date) unknown) (unknown) (no (unknown) (unknown) 6 months other (units (unknown) date) Mila unknown) (unknown) (no (unknown) (unknown) Abnormal lab (units (u nknown) date) values 1st unknown) trimester: discussed (unknown) (no (unknown) (unknown) Add'l Plan (units (unk nown) date) Details unknown) (unknown) (no (unknown) (unknown) Age/Sex: 31 / F (units (unknown) date) Date of Service: unknown) (unknown) (no (unknown) (unknown) Allergies (units (unkn own) date) unknown) (unknown) (no (unknown) (unknown) Anesthesia (units (unk nown) date) unknown) (unknown) (no (unknown) (unknown) Aneuploidy (units (unk nown) date) Screening Offered: unknown) Declined (unknown) (no (unknown) (unknown) Anticipated (units (un known) date) course of unknown) care: discussed (unknown) (no (unknown) (unknown) Anxiety and (units (un known) date) depression () unknown) (unknown) (no (unknown) (unknown) Assessment and (units (unknown) date) Plan unknown) (unknown) (no (unknown) (unknown) Attending Dr: (units ( unknown) date) Ash Villafuerte MD unknown) (unknown) (no (unknown) (unknown) BMI 25.6 (units (unkno wn) date) unknown) (unknown) (no (unknown) (unknown) BP 118/70 (units (unkn own) date) unknown) (unknown) (no (unknown) (unknown) (units (unkno wn) date) Plan/Preferences unknown) (unknown) (no (unknown) (unknown) Planning (units (unknown) date) unknown) (unknown) (no (unknown) (unknown) Blood Pressure (units (unknown) date) Location Rt unknown) brachial (unknown) (no (unknown) (unknown) Blood (units (unkno wn) date) transfusions?: yes unknown) (Never had but would accept) (unknown) (no (unknown) (unknown) Breastfeed Preg (units (unknown) date) Comp Name unknown) (unknown) (no (unknown) (unknown) delivery (units (unknown) date) delivered unknown) (unknown) (no (unknown) (unknown) Concussion (units (unk nown) date) unknown) (unknown) (no (unknown) (unknown) Connective tissue (units (unknown) date) disorder unknown) (unknown) (no (unknown) (unknown) Current (units (unknown) date) History unknown) (unknown) (no (unknown) (unknown) : 1990 (units (unknown) date) Acct:[id number] unknown) (unknown) (no (unknown) (unknown) Date (units (unkno wn) date) unknown) (unknown) (no (unknown) (unknown) Date of positive (units (unknown) date) home unknown) test: 09/19/21 (unknown) (no (unknown) (unknown) Del. Date (units (unkn own) date) GA/Weeks Labor unknown) Lgth Wt Sex Route Outcome Anesthesia Place (unknown) (no (unknown) (unknown) Delivery Date: (units (unknown) date) 08/20/20 Last unknown) Updated by: Sade Valdez R.N. (unknown) (no (unknown) (unknown) Delivery Date: (units (unknown) date) 04/29/18 Last unknown) Updated by: Sade Valdez R.N. (unknown) (no (unknown) (unknown) Delv (units (unkno wn) date) unknown) (unknown) (no (unknown) (unknown) Denies other (units (u nknown) date) unknown) (unknown) (no (unknown) (unknown) Denies over the (units (unknown) date) counter unknown) medications, Denies alcohol, Denies illicit drugs and (unknown) (no (unknown) (unknown) Depression: (units (un known) date) discussed unknown) (unknown) (no (unknown) (unknown) Dept at (units (unkno wn) date) . unknown) (unknown) (no (unknown) (unknown) Diet and Exercise (units (unknown) date) unknown) (unknown) (no (unknown) (unknown) Disabling (units (unkn own) date) abdominal/pelvic unknown) pain with second after @ 26 weeks; ? (unknown) (no (unknown) (unknown) Documented By: (units (unknown) date) Ash Villafuerte MD unknown) 02/21/22 1324 (unknown) (no (unknown) (unknown) NAHED Calculator (units (unknown) date) unknown) (unknown) (no (unknown) (unknown) EGA Weight BP (units ( unknown) date) UGlucose unknown) (unknown) (no (unknown) (unknown) Yoshi, (units (unkno wn) date) [place] which unknown) makes continuing care here in [place] (unknown) (no (unknown) (unknown) Yoshi. (units (unkno wn) date) Unfortunately the unknown) M group refused to monitor the referral unless it (unknown) (no (unknown) (unknown) Expected Delivery (units (unknown) date) Route/Plan unknown) (unknown) (no (unknown) (unknown) Family History (units (unknown) date) (Reviewed 02/21/22 unknown) @ 13:26 by Toño Mcconnell RN) (unknown) (no (unknown) (unknown) Father of Baby: (units (unknown) date) same unknown) (unknown) (no (unknown) (unknown) First Trimester (units (unknown) date) Education unknown) Checklist (unknown) (no (unknown) (unknown) (units (unkno wn) date) unknown) (unknown) (no (unknown) (unknown) Genetic Screening (units (unknown) date) unknown) (unknown) (no (unknown) (unknown) Genetic Screening (units (unknown) date) + Counseling unknown) (unknown) (no (unknown) (unknown) Grandfather (units (un known) date) Aneurysm unknown) (unknown) (no (unknown) (unknown) Grandfather (units (un known) date) unknown) Hypertension (unknown) (no (unknown) (unknown) Grandmother (units (un known) date) COPD unknown) (chronic obstructive pulmonary disease) (unknown) (no (unknown) (unknown) 3 (units (unkn own) date) Multiple births 0 unknown) (unknown) (no (unknown) (unknown) H/O knee surgery (units (unknown) date) () unknown) (unknown) (no (unknown) (unknown) HIV risk (units (unkno wn) date) evaluation: low unknown) risk (unknown) (no (unknown) (unknown) Health Center (units ( unknown) date) Education unknown) (unknown) (no (unknown) (unknown) Health center (units ( unknown) date) information: unknown) nature of practice discussed, personnel (unknown) (no (unknown) (unknown) Height 5 ft (units (un known) date) unknown) (unknown) (no (unknown) (unknown) Hepatitis C risk (units (unknown) date) evaluation: low unknown) risk (unknown) (no (unknown) (unknown) History of (units (unk nown) date) Hepatitis B: No unknown) (unknown) (no (unknown) (unknown) History of (units (unk nown) date) Hepatitis C: No unknown) (unknown) (no (unknown) (unknown) History of (units (unk nown) date) appendectomy unknown) (-2015) (unknown) (no (unknown) (unknown) History of (units (unk nown) date) tonsillectomy unknown) () (unknown) (no (unknown) (unknown) History of (units (unk nown) date) uterine prolapse unknown) () (unknown) (no (unknown) (unknown) Hospital: (units (u nknown) date) unknown) (unknown) (no (unknown) (unknown) [facility] (units (unknown) date) unknown) (unknown) (no (unknown) (unknown) Hx # (units (u nknown) date) Pregnancies 0 unknown) Elective abortions (unknown) (no (unknown) (unknown) Hx # Term (units (unkn own) date) Pregnancies 2 unknown) Ectopic pregnancies (unknown) (no (unknown) (unknown) Hx pelvic (units (unkn own) date) prolapse (uterine, unknown) cystocele, possible rectocele) with extensive (unknown) (no (unknown) (unknown) will be (units (unknown) date) adopted?: no unknown) (unknown) (no (unknown) (unknown) Infection History (units (unknown) date) unknown) (unknown) (no (unknown) (unknown) Infectious (units (unk nown) date) Disease Education unknown) (unknown) (no (unknown) (unknown) Infectious (units (unk nown) date) disease exposure: unknown) chicken pox immunity discussed, hepatitis risk (unknown) (no (unknown) (unknown) Initial Weight: (units (unknown) date) 108 lb unknown) (unknown) (no (unknown) (unknown) Initials (units (unkno wn) date) unknown) (unknown) (no (unknown) (unknown) Intake (units (unkno wn) date) unknown) (unknown) (no (unknown) (unknown) Intake Clinical (units (unknown) date) Staff unknown) (unknown) (no (unknown) (unknown) Intake Note: (units (u nknown) date) unknown) (unknown) (no (unknown) (unknown) Intake performed (units (unknown) date) by: Toño Mcconnell unknown) (unknown) (no (unknown) (unknown) Live with someone (units (unknown) date) with TB or exposed unknown) to TB: No (unknown) (no (unknown) (unknown) Loc: [facility] (units (unkno wn) date) unknown) (unknown) (no (unknown) (unknown) MFM consult from (units (unknown) date) [facility] [place] unknown) reviewed and based on testing thus far, patient (unknown) (no (unknown) (unknown) MFM to co-manage (units (unknown) date) this . 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 also detected a heart murmur (unknown) (no (unknown) (unknown) [place] placenta (units (unknown) date) previa noted on 20 unknown) week anatomy scan; re-scan third trimester (unknown) (no (unknown) (unknown) Marital status: (units (unknown) date) unknown) (unknown) (no (unknown) (unknown) Medical History (units (unknown) date) (Updated 02/21/22 unknown) @ 13:55 by Ash Villafuerte MD) (unknown) (no (unknown) (unknown) Medications (units (un known) date) unknown) (unknown) (no (unknown) (unknown) Mitral valve (units (u nknown) date) prolapse unknown) (unknown) (no (unknown) (unknown) Mother (units (unkno wn) date) Hypertension unknown) (unknown) (no (unknown) (unknown) Notes (units (unkno wn) date) unknown) (unknown) (no (unknown) (unknown) Number of Living (units (unknown) date) Children 2 unknown) (unknown) (no (unknown) (unknown) Number of (units (unkn own) date) fetuses:: Single unknown) (unknown) (no (unknown) (unknown) Nutrition and (units ( unknown) date) weight gain unknown) counseling: special diet: discussed (unknown) (no (unknown) (unknown) OB Visit Log (units (u nknown) date) unknown) (unknown) (no (unknown) (unknown) PFSH (units (unkno wn) date) unknown) (unknown) (no (unknown) (unknown) Para 2 (units (unkno wn) date) Spontaneous unknown) abortions (unknown) (no (unknown) (unknown) Partner history (units (unknown) date) of STD: denies hx unknown) (unknown) (no (unknown) (unknown) Partner history (units (unknown) date) of genital herpes: unknown) No (unknown) (no (unknown) (unknown) Partner: Miguel (units (unknown) date) [place] unknown) (unknown) (no (unknown) (unknown) Past Pregnancies (units (unknown) date) unknown) (unknown) (no (unknown) (unknown) Patient's age 36 (units (unknown) date) years or older as unknown) of estimated date of delivery: No (unknown) (no (unknown) (unknown) Patient: (units (unkno wn) date) Helena Reed unknown) MR#: [id number] (unknown) (no (unknown) (unknown) 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: AMINATA (units (unknown) date) Jose Francisco Christensen unknown) (unknown) (no (unknown) (unknown) [place], [place] 19 (units (unknown) date) unknown) (unknown) (no (unknown) (unknown) Personal history (units (unknown) date) of STD: denies hx unknown) (unknown) (no (unknown) (unknown) Personal history (units (unknown) date) of genital herpes: unknown) No (unknown) (no (unknown) (unknown) Position Sitting (units (unknown) date) unknown) (unknown) (no (unknown) (unknown) Possible (units (unkno wn) date) connective tissue unknown) disorder suspected due to tissue consistency at the (unknown) (no (unknown) (unknown) History (units (unknown) date) unknown) (unknown) (no (unknown) (unknown) type:: (units (unknown) date) Other Normal unknown) (unknown) (no (unknown) (unknown) (units (unkno wn) date) Education unknown) (unknown) (no (unknown) (unknown) Initial (units (unknown) date) Assessment unknown) (unknown) (no (unknown) (unknown) Specific (units (unknown) date) Issues/Plans unknown) (unknown) (no (unknown) (unknown) Testing: (units (unknown) date) discussed unknown) (unknown) (no (unknown) (unknown) Visit (units (unknown) date) unknown) (unknown) (no (unknown) (unknown) (units (unkno wn) date) education packet: unknown) symptoms, Vitamins and iron, Diet and (unknown) (no (unknown) (unknown) Primary Care (units (u nknown) date) Provider: AMINATA [place] unknown) [place] (unknown) (no (unknown) (unknown) Primary Ob (units (unk nown) date) Provider: unknown) Ash Villafuerte (unknown) (no (unknown) (unknown) Prior (units (unkno wn) date) GBS-Infected unknown) child: No (unknown) (no (unknown) (unknown) Providers (units (unkn own) date) unknown) (unknown) (no (unknown) (unknown) Reason For Visit (units (unknown) date) unknown) (unknown) (no (unknown) (unknown) Recent travel (units ( unknown) date) outside of unknown) country?: No (unknown) (no (unknown) (unknown) Recurrent (units (unkn own) date) loss or unknown) a stillbirth: No (unknown) (no (unknown) (unknown) Repeat (units (unknown) date) section unknown) (unknown) (no (unknown) (unknown) Reports (units (unkno wn) date) Congenital Heart unknown) Defect (pt ) and Reports Mental Retardation/Autism (unknown) (no (unknown) (unknown) Safety (units (unkno wn) date) unknown) (unknown) (no (unknown) (unknown) Sauna/hot tub (units ( unknown) date) use, Dental care, unknown) Travel, Seatbelt use and Influenza vaccine (no (unknown) (no (unknown) (unknown) She continues to (units (unknown) date) do extremely well unknown) and her baby is active. She denies (unknown) (no (unknown) (unknown) Signed By: (units (unk nown) date) <Electronically unknown) signed by Ash Villafuerte MD> (unknown) (no (unknown) (unknown) Smoking Status: (units (unknown) date) Never smoker unknown) (unknown) (no (unknown) (unknown) Social History (units (unknown) date) unknown) (unknown) (no (unknown) (unknown) Sulfa (units (unkno wn) date) (Sulfonamide unknown) Antibiotics) Allergy (Intermediate, Verified 02/21/22 13:24) (unknown) (no (unknown) (unknown) Support (units (unkno wn) date) Person(s):: Miguel unknown) (unknown) (no (unknown) (unknown) Surgical History (units (unknown) date) (Reviewed 02/21/22 unknown) @ 13:26 by Toño Mcconnell RN) (unknown) (no (unknown) (unknown) Surrogate (units (unkn own) date) ?: no unknown) (unknown) (no (unknown) (unknown) Symptoms since (units (unknown) date) LMP: Reports unknown) amenorrhea, nausea, vomiting, fatigue and breast (unknown) (no (unknown) (unknown) Tdap status: (units (u nknown) date) immunized unknown) (unknown) (no (unknown) (unknown) Teratogen (units (unkn own) date) Exposures since unknown) LMP/Conception: Denies prescription medications, (unknown) (no (unknown) (unknown) Testing Education (units (unknown) date) unknown) (unknown) (no (unknown) (unknown) Testing education (units (unknown) date) completed: [place] unknown) bifida testing (unknown) (no (unknown) (unknown) This note may (units ( unknown) date) have been all or unknown) partially generated using voice recognition (unknown) (no (unknown) (unknown) Tobacco + (units (unkn own) date) Substance Use unknown) (unknown) (no (unknown) (unknown) Tobacco Status (units (unknown) date) unknown) (unknown) (no (unknown) (unknown) Type(s) of (units (unk nown) date) exercise: walking unknown) (unknown) (no (unknown) (unknown) UProtein Movement (units (unknown) date) PreLabor FHR Fndl unknown) Ht Pres Edema Cerv Exam US/Comment Next Appt (unknown) (no (unknown) (unknown) Varicella/chicken (units (unknown) date) pox status: unknown) previous disease (unknown) (no (unknown) (unknown) Visit Date: (units (un known) date) 11/14/21 Last unknown) Updated by: Ash Villafuerte MD (unknown) (no (unknown) (unknown) Visit Date: (units (un known) date) 12/13/21 Last unknown) Updated by: Ash Villafuerte MD (unknown) (no (unknown) (unknown) Visit Date: (units (un known) date) 01/17/22 Last unknown) Updated by: Ash Villafuerte MD (unknown) (no (unknown) (unknown) Visit Date: (units (un known) date) 02/21/22 Last unknown) Updated by: Ash Villafuerte MD (unknown) (no (unknown) (unknown) Visit Reasons: OB (units (unknown) date) CHECK unknown) (unknown) (no (unknown) (unknown) Vitals (units (unkno wn) date) unknown) (unknown) (no (unknown) (unknown) WG (units (unkno wn) date) unknown) (unknown) (no (unknown) (unknown) Weight 131 lb 1 (units (unknown) date) oz unknown) (unknown) (no (unknown) (unknown) [place] teeth (units (u nknown) date) extracted () unknown) (unknown) (no (unknown) (unknown) Zika virus (units (unk nown) date) exposure: No unknown) (unknown) (no (unknown) (unknown) a normal sized (units (unknown) date) vaginally, unknown) she had significant uterovaginal prolapse (unknown) (no (unknown) (unknown) advised to let us (units (unknown) date) know if there are unknown) any further delays in getting the (unknown) (no (unknown) (unknown) ahead. If Christofer (units (unknown) date) Danlos is unknown) confirmed, [facility] consult will be obtained. Patient (unknown) (no (unknown) (unknown) alcohol intake: (units (unknown) date) former unknown) (unknown) (no (unknown) (unknown) amount of nausea (units (unknown) date) with no appetite unknown) and on a daily basis she takes Zofran to (unknown) (no (unknown) (unknown) and the patient (units (unknown) date) has been referred unknown) for echocardiography. Quad screen testing (unknown) (no (unknown) (unknown) and will be (units (un known) date) having a unknown) re-scanned at [facility] in 2 weeks to reassess its (unknown) (no (unknown) (unknown) and will obtain a (units (unknown) date) follow-up unknown) ultrasound in the 3rd trimester to re-evaluate the (unknown) (no (unknown) (unknown) anyone in either (units (unknown) date) family with: unknown) (unknown) (no (unknown) (unknown) at [facility] and if (units (unknown) date) the diagnosis of unknown) Christofer-Danlos is confirmed, will refer to [facility] (unknown) (no (unknown) (unknown) ay occur. (units (unkn own) date) Occasional unknown) wrong-word or 'sound-alike' substitutions may have (unknown) (no (unknown) (unknown) be in 4 weeks or (units (unknown) date) as needed. 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 She also unknown) has a marginal posterior placenta previa (unknown) (no (unknown) (unknown) contractions, (units ( unknown) date) bleeding, leakage unknown) of fluid per vagina, or change in discharge. (unknown) (no (unknown) (unknown) control the (units (un known) date) nausea. She also unknown) has significant loss of energy levels. 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 Results of the [facility] genetic testing (unknown) (no (unknown) (unknown) discharge. She was (units (unknown) date) seen by unknown) rheumatology but the solution professional was unable to do (unknown) (no (unknown) (unknown) discussed, (units (unk nown) date) tuberculosis unknown) exposure discussed, CMV discussed, Toxoplasmosis (unknown) (no (unknown) (unknown) do you feel safe (units (unknown) date) at home: Yes unknown) (unknown) (no (unknown) (unknown) does not have (units ( unknown) date) Christofer-Danlos but unknown) may have some other as yet undiagnosed (unknown) (no (unknown) (unknown) during the past (units (unknown) date) year weight has: unknown) decreased > 10 lbs (unknown) (no (unknown) (unknown) education level: (units (unknown) date) college unknown) (unknown) (no (unknown) (unknown) encounter during (units (unknown) date) the course of unknown) surgery. The patient has had no formal testing (unknown) (no (unknown) (unknown) fire extinguisher (units (unknown) date) in home: Yes unknown) (unknown) (no (unknown) (unknown) firearms in home: (units (unknown) date) Yes firearms unknown) unloaded and locked: Yes (unknown) (no (unknown) (unknown) flu shot, J+J (units ( unknown) date) covid x1) unknown) (unknown) (no (unknown) (unknown) for Christofer-Danlos (units (unknown) date) syndrome but is unknown) currently waiting on approval of a referral to (unknown) (no (unknown) (unknown) frequency: daily (units (unknown) date) unknown) (unknown) (no (unknown) (unknown) genes tested. (units ( unknown) date) Patient also has unknown) had echocardiogram performed which was also (unknown) (no (unknown) (unknown) genetic testing (units (unknown) date) for diagnosis of unknown) Christofer-Danlos syndrome and her primary care (unknown) (no (unknown) (unknown) gestation of (units (u nknown) date) unknown) (unknown) (no (unknown) (unknown) gestational age. (units (unknown) date) She has not yet unknown) felt movement but denies (unknown) (no (unknown) (unknown) gestational age. (units (unknown) date) She is doing well unknown) and has started feeling more movement. She (unknown) (no (unknown) (unknown) gestational age. (units (unknown) date) The patient is unknown) doing reasonably well but having significant (unknown) (no (unknown) (unknown) had a 2nd (units (unkn own) date) which unknown) was delivered by primary section and at the (unknown) (no (unknown) (unknown) have occurred. If (units (unknown) date) there are any unknown) questions, please contact the Medical Records (unknown) (no (unknown) (unknown) her to hand carry (units (unknown) date) to her new unknown) hoisting engineer. 1 hour GDM screen and CBC will be (unknown) (no (unknown) (unknown) hours a day and (units (unknown) date) participation of unknown) father in care and office visits (unknown) (no (unknown) (unknown) household (units (unkn own) date) members: spouse, unknown) family (sister) and children (unknown) (no (unknown) (unknown) housing: house (units (unknown) date) unknown) (unknown) (no (unknown) (unknown) importance of (units (u nknown) date) diagnosis if she unknown) has Christofer-Danlos which would prompt MFM referral (unknown) (no (unknown) (unknown) in . (units (u nknown) date) unknown) (unknown) (no (unknown) (unknown) interest. Twenty (units (unknown) date) week anatomy scan unknown) is normal with the at the 26th (unknown) (no (unknown) (unknown) is however (units (unk nown) date) continuing to have unknown) pelvic and lower abdominal discomfort much as she (unknown) (no (unknown) (unknown) lives (units (unkno wn) date) independently: Yes unknown) (unknown) (no (unknown) (unknown) marital status: (units (unknown) date) unknown) (unknown) (no (unknown) (unknown) difficult (units (unknown) date) logistically and unknown) patient considering transfer obstetrical care (unknown) (no (unknown) (unknown) metoclopramide (units (unknown) date) [From Reglan] unknown) Adverse Reaction (Mild, Verified 02/21/22 13:24) (unknown) (no (unknown) (unknown) musculoskeletal (units (unknown) date) unknown) (unknown) (no (unknown) (unknown) needed either (units ( unknown) date) here or with a new unknown) provider in [facility]. (unknown) (no (unknown) (unknown) none [place] (units (un known) date) unknown) (unknown) (no (unknown) (unknown) normal. Patient (units (unknown) date) is currently unknown) scheduled for her initial MFM consult to be (unknown) (no (unknown) (unknown) number of (units (unkn own) date) children: 2 unknown) (unknown) (no (unknown) (unknown) occupational (units (u nknown) date) status: employed unknown) (unknown) (no (unknown) (unknown) occurred due to (units (unknown) date) the inherent unknown) limitations of voice recognition software. Please (unknown) (no (unknown) (unknown) ondansetron 4 mg (units (unknown) date) disintegrating unknown) tablet 4 mg PO Q8H PRN nausea and vomiting #20 (unknown) (no (unknown) (unknown) patient has a (units ( unknown) date) significant unknown) obstetrical history in that after her 1st delivery of (unknown) (no (unknown) (unknown) patient is (units (unk nown) date) committed to unknown) moving forward with it despite maternal challenges (unknown) (no (unknown) (unknown) percentile insofar (units (unknown) date) as EFW. Posterior unknown) placenta w/ marginal placenta previa noted (unknown) (no (unknown) (unknown) performed January (units (unknown) date) 2021 have will unknown) await the results of the consultation with (unknown) (no (unknown) (unknown) performed today. (units (unknown) date) PTL precautions unknown) reviewed. Follow-up will be in 4 weeks or as (unknown) (no (unknown) (unknown) pets and animals: (units (unknown) date) Yes (2 dogs, 1 unknown) fish.) (unknown) (no (unknown) (unknown) placental (units (unkn own) date) position at that unknown) time. Labor precautions reviewed and follow-up in 4 (unknown) (no (unknown) (unknown) precautions, (units (u nknown) date) Listeriosis unknown) prevention and Rubella Immunization (unknown) (no (unknown) (unknown) prenat.vits,kin,m (units (unknown) date) [id number] 1 unknown) tab PO DAILY 11/04/21 [History Confirmed (unknown) (no (unknown) (unknown) provider (units (unkno wn) date) initiated a unknown) referral to Maternal- Medicine at [facility] (unknown) (no (unknown) (unknown) read the note (units ( unknown) date) carefully and unknown) recognize, using context, where these substitutions (unknown) (no (unknown) (unknown) repair after 1st (units (unknown) date) unknown) (unknown) (no (unknown) (unknown) requested by her (units (unknown) date) solution professional unknown) returns negative results for the 89 individual (unknown) (no (unknown) (unknown) requiring surgical (units (unknown) date) reconstruction in unknown) [place], [place]. Following that delivery she (unknown) (no (unknown) (unknown) rheumatology (units (u nknown) date) consult done. unknown) Precautionary symptoms reviewed and follow-up will (unknown) (no (unknown) (unknown) rheumatology for (units (unknown) date) evaluation. This unknown) was not intended but the (unknown) (no (unknown) (unknown) seatbelt use: (units ( unknown) date) always unknown) (unknown) (no (unknown) (unknown) second hand (units (un known) date) exposure: Yes (As unknown) a child, but no longer) (unknown) (no (unknown) (unknown) software. (units (unkn own) date) Although every unknown) effort is made to edit content, pastoral ministries professor errors m (unknown) (no (unknown) (unknown) special nicolle (units ( unknown) date) needs: No unknown) (unknown) (no (unknown) (unknown) status. (units (unkno wn) date) Precautionary unknown) symptoms reviewed. Patient has taken a new job in (unknown) (no (unknown) (unknown) submitted today. (units (unknown) date) Twenty week unknown) anatomy scan ordered. Follow-up will be in 4 (unknown) (no (unknown) (unknown) substance use (units ( unknown) date) type: does not use unknown) (unknown) (no (unknown) (unknown) tabs 11/01/21 [Rx (units (unknown) date) Confirmed unknown) 02/21/22] (unknown) (no (unknown) (unknown) tenderness (units (unk nown) date) unknown) (unknown) (no (unknown) (unknown) time of ; (units (unknown) date) Rheumatology unknown) referral pending per her PCP on-base. Emphasized (unknown) (no (unknown) (unknown) time of surgery (units (unknown) date) the operating unknown) surgeon felt that the patient may have a (unknown) (no (unknown) (unknown) to a provider in (units (unknown) date) the [facility]. unknown) Although patient is not yet firmly decided (unknown) (no (unknown) (unknown) to transfer care. (units (unknown) date) Copies of her unknown) records were provided to the patient today for (unknown) (no (unknown) (unknown) travel history: (units (unknown) date) over 6 months ago unknown) (unknown) (no (unknown) (unknown) gurpreet. (units (unk n) date) suggested pt may unknown) have a connective tissue disorder based on findings (unknown) (no (unknown) (unknown) was sent by an (units (unknown) date) hoisting engineer. Will unknown) initiate a new referral for genetic testing (unknown) (no (unknown) (unknown) water heater temp (units (unknown) date) set < 120 deg: Yes unknown) (unknown) (no (unknown) (unknown) weeks or as (units (un known) date) needed. unknown) (unknown) (no (unknown) (unknown) weight gain, Fish (units (unknown) date) and mercury unknown) intake, Caffeine use, Exercise and activity, (unknown) (no (unknown) (unknown) well-balanced (units ( unknown) date) diet: about half unknown) the time (unknown) (no (unknown) (unknown) work/environmenta (units (unknown) date) l/hazards, Sexual unknown) activity, X-ray exposure, Medication use, (unknown) (no (unknown) (unknown) working smoke (units ( unknown) date) detector in home: unknown) Yes Result panel 3 (unknown) (no date) (unknown) (unknown) 11.7 g/dL (unkn own) (unknown) (no date) (unknown) (unknown) 32.9 % (unkn own) Result panel 4 (unknown) (no date) (unknown) (unknown) 182 mg/dL (unkn own) Result panel 5 (unknown) (no date) (unknown) (unknown) 78 mg/dl (unkn own) (unknown) (no date) (unknown) (unknown) 78 mg/dl (unkn own) Result panel 6 (unknown) (no date) (unknown) (unknown) 157 mg/dl (unkn own) (unknown) (no date) (unknown) (unknown) 157 mg/dl (unkn own) Result panel 7 (unknown) (no date) (unknown) (unknown) 116 mg/dl (unkn own) (unknown) (no date) (unknown) (unknown) 116 mg/dl (unkn own) Result panel 8 (unknown) (no (unknown) (unknown) INTERPRETATION (units (unknown) date) unknown) (unknown) (no (unknown) (unknown) INTERPRETATION (units (unknown) date) unknown) Result panel 9 (unknown) (no date) (unknown) (unknown) 89 mg/dl (unkn own) (unknown) (no date) (unknown) (unknown) 89 mg/dl (unkn own) (unknown) (no date) (unknown) (unknown) INTERPRETATION (units (unknown) unknown) (unknown) (no date) (unknown) (unknown) INTERPRETATION (units (unknown) unknown) Social History No information. Vital Signs No information.
[2022-04-19 20:04] LABS: BASOPHILS % (AUTO) 0.2 %; EOSINOPHILS % (AUTO) 0.4 %; HCT - HEMATOCRIT 32.3 % (37.0-47.0); HGB - HEMOGLOBIN 10.5 g/dL (12.0-16.0); LYMPHOCYTES # (AUTO) 1.7 10^3/uL (1.5-3.5); LYMPHOCYTES % (AUTO) 20.1 %; MEAN CORPUSCULAR HEMOGLOBIN 29.3 pg (27.0-31.0); MEAN CORPUSCULAR HGB CONC 32.5 g/dL (32.0-36.0); MEAN CORPUSCULAR VOLUME 90.2 fL (81.0-99.0); MEAN PLATELET VOLUME 10.3 fL (7.9-10.8); MONOCYTES # (AUTO) 0.6 10^3/uL (0.0-1.0); MONOCYTES % (AUTO) 6.4 %; NEUTROPHILS # (AUTO) 6.1 10^3/uL (1.5-6.6); PLT - PLATELET COUNT 148 10^3/uL (130-450); RED BLOOD COUNT 3.58 10^6/uL (4.20-5.40); RED CELL DISTRIBUTION WIDTH 13.1 % (12.0-15.0); WHITE BLOOD COUNT 8.6 x10^3/uL (4.8-10.8)
[2022-04-19 20:16] LABS: ALBUMIN 2.9 g/dL (3.2-5.5); ALBUMIN/GLOBULIN RATIO 0.9 (1.0-2.2); BILIRUBIN,TOTAL 0.5 mg/dL (0.2-1.0); CALCIUM 9.1 mg/dL (8.5-10.3); CREATININE 0.5 mg/dL (0.4-1.0); MAGNESIUM 1.6 mg/dL (1.7-2.8); PHOSPHORUS 3.5 mg/dL (2.5-4.6); POTASSIUM 3.5 mmol/L (3.5-5.0); TOTAL PROTEIN 6.3 g/dL (6.7-8.2)
[2022-04-19] MEDS ORDERED: MAGNESIUM SULFATE 2 GRAM 2 GM/50 ML BAG IV ONE (20:43)
--- NOTE | 2022-04-19 20:57 | ED Physician Documentation ---
History of Present Illness - Stated complaint Stated Complaint: LEG CRAMPING/34WKS - Chief complaint Chief Complaint: Ext Problem - Additonal information Additional information: 31-year-old female who is reportedly 34 weeks presents the emergency department for evaluation of 2 days of bilateral lower leg cramping. Describes them as feeling like charley horses. She states that she has had this similarly in past pregnancies though they were able to be controlled by walking or taking a warm bath none of which has helped. She denies any loss of fluids, vaginal bleeding or abdominal pain. She continues to have movement. No fevers. G3, . She was previously followed by OB through [place] and [facility] but is transitioning to an OB provider in [place] that she works in [employer]. 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: No Does the pt have substance abuse?: No - Immunizations Immunizations are current?: Yes PD ED PE NORMAL - General General: Alert and oriented X 3, No acute distress, Well developed/nourished - HEENT HEENT: Atraumatic - Neck Neck: Supple, no meningeal sign - Cardiac Cardiac: RRR, No murmur - Respiratory Respiratory: No respiratory distress, Clear bilaterally - Abdomen Abdomen: Normal bowel sounds, Soft, Other (gravid uterus well above umbilicus) - Back Back: No CVA TTP - Derm Derm: Normal color, Warm and dry - Extremities Extremities: No deformity, Normal ROM s pain, No edema, Other (Patient is able to ambulate. No palpable spasm or deformity noted in the lower extremities. 2+ DP pulse bilaterally.). No: No tenderness to palpate - Neuro Neuro: Alert and oriented X 3, it systems administrator 2-12 intact Eye Opening: Spontaneous Motor: Obeys Commands Verbal: Oriented GCS Score: 15 Results - Vitals Vitals: Vital Signs - 24 hr 04/19/22 19:42 Temperature 36.4 C L Heart Rate 89 Respiratory 16 Rate Blood Pressure 106/67 O2 Saturation 100 Oxygen O2 Source Room air - Labs Labs: Laboratory Tests 04/19/22 04/19/22 19:59 19:59 WBC 8.6 RBC 3.58 L Hgb 10.5 L Hct 32.3 L MCV 90.2 MCH 29.3 MCHC 32.5 RDW 13.1 Plt Count 148 MPV 10.3 Neut # (Auto) 6.1 Lymph # (Auto) 1.7 [place] # (Auto) 0.6 Eos # (Auto) 0.0 Baso # (Auto) 0.0 Absolute Nucleated RBC 0.00 Nucleated RBC % 0.0 Sodium 134 L Potassium 3.5 Chloride 102 Carbon Dioxide 22 Anion Gap 10.0 BUN 7 Creatinine 0.5 Estimated GFR (MDRD) 145 Glucose 119 H Calcium 9.1 Phosphorus 3.5 Magnesium 1.6 L Total Bilirubin 0.5 AST 23 ALT 13 Alkaline Phosphatase 105 Total Protein 6.3 L Albumin 2.9 L Globulin 3.4 Albumin/Globulin Ratio 0.9 L Lipase 27 PD MEDICAL DECISION MAKING - ED course Complexity details: reviewed results, d/w patient, d/w economic consultant ([place]) ED course: 4-year-old female who is 34 weeks presents emergency department for evaluation of worsening bilateral lower extremity cramping that began about 2 days ago. She has had similar in previous though not this bad. Today in the emergency department her CBC does show a mild anemia which is likely physiologic anemia in the setting of advanced . Her electrolytes do show a mildly decreased magnesium at 1.6. She was given 2 g of magnesium here in the ER. She has no hypertension or worrisome abnormalities otherwise. I did briefly discussed this case with OB on-call Dr. Mathew and he agrees with the infusion of magnesium. Nursing staff is ordered an NST Which was unremarkable for age of gestation. Patient is advised close follow-up with her OB which she is scheduled to see on Thursday. Emergent return precautions discussed otherwise Departure - Departure Disposition: Home, Self Care Clinical Impression: Bilateral leg cramps, Hypomagnesemia Condition: Stable Record reviewed to determine appropriate education?: Yes Comments: [place] you are seen today in the emergency department because for the last few days you have been having cramping in your lower extremities. Here in the emergency department we did do a nonstress test. This was unremarkable for gestational age. Today in the emergency department your labs do show a mild anemia which is normal and expected at this stage in . Your magnesium level was just slightly low at 1.6. The cutoff for normal is 1.7. We did give you some magnesium here in the emergency department. This case was briefly discussed with our OB on-call and he would recommend that you continue walking as necessary as well as doing warm bath water soaks of your lower legs. Continue follow-up with your OB as scheduled early this upcoming week. Return to the ER for any vaginal bleeding, loss of fluids labor symptoms or any other emergent concerns.
[2022-04-19 22:00] VITALS: BP 95/67
== END 2022-04-19 22:03 | disposition home or self-care (01) ==
LOC: ED 19:24
DX: O99.891 Other specified diseases and conditions complicating pregnancy (principal); R25.2 Cramp and spasm; M79.604 Pain in right leg; M79.605 Pain in left leg; O99.283 Endocrine, nutritional and metabolic diseases complicating pregnancy, third trimester; E83.42 Hypomagnesemia; O99.013 Anemia complicating pregnancy, third trimester; D64.9 Anemia, unspecified; Z3A.34 34 weeks gestation of pregnancy
CPT/HCPCS: 36415; 80053; 83690; 83735; 84100; 85025; 96365; 99284

== ENCOUNTER 2022-05-05 19:44 | Outpatient (CLI) | payer OTHER ==
--- NOTE | 2022-05-05 20:11 | PROVIDER PROGRESS NOTE ---
- HPI Chief Complaint: Labor Check Current : Vital Signs Temperature 98.4 F 05/05/22 19:59 Heart Rate 95 05/05/22 19:59 Respiratory Rate 20 05/05/22 19:59 Blood Pressure 101/71 05/05/22 19:59 O2 Saturation 100 05/05/22 19:59 Temperature 98.4 F 05/05/22 19:59 Heart Rate 95 05/05/22 19:59 Respiratory Rate 20 05/05/22 19:59 Blood Pressure 101/71 05/05/22 19:59 O2 Saturation 100 05/05/22 19:59 If not protocol: Oxygen Flow, liters/minute - Procedures OB Procedure Performed: NST Service Date of procedure: 05/05/22 (Read 05/05/22) - Plan Plan: Patient is a 31-year-old G3, P2 at 36 weeks gestation presenting to triage for contractions. Contractions started around 1730 after [address] home from work. Worse in LLQ Irregular and sharp. The first one made her bend over. No dysuria or increased frequency. She has good movement, no leaking, no vaginal bleeding. She denies headache, right upper quadrant pain, changes in vision. Past medical history Pelvic organ prolapse Past surgical history Anterior posterior repair with suspension: 2019 Tonsillectomy Appendectomy Knee surgery Social history Denies tobacco, alcohol, drugs Physical Constitutional: alert, no acute distress, well hydrated, well developed, well nourished, appropriate dress. Cardiovascular: Regular rate and rhythm. Respiratory: no respiratory distress. Abdomen: Gravid, nondistended. Mild suprapubic tenderness. Psych: affect and mood appropriate, normal interaction, good eye contact. Extremities: Warm and well perfused. No significant edema. FHT: 125 beats per baseline, moderate variability, accelerations present, no decelerations. [place]: Irritable SVE: 0/0/-3 Assessment and plan 31-year-old G3, P2 at 36 weeks gestation with contractions 1. Contractions without labor: -No cervical change on serial exams. - fibrinectin low yield after 35 weeks as Ffn may be present naturally. -UA positive for bacteria and leukocyte esterase. Will send for culture. -Will send nitrofurantoin to pharmacy. Will follow up on culture results. -Cervical length greater than 3 cm. Os closed visually on ultrasound as well as a digitally. 2. 36 weeks gestation -Gets care at [facility]. Questionable low-lying placenta. -Patient had a early second trimester ultrasound showing placenta 8 mm from cervical os, and per patient ultrasound last week was consistent with this. Today placenta is greater than 4 cm from os. While this would be a very large rate of growth in 1 week, we do not have the records to compare. Encourage patient to discuss with her primary OB provider.
[2022-05-05 20:40] LABS: BILIRUBIN,URINE NEGATIVE (NEGATIVE); GLUCOSE, URINE (UA) NEGATIVE (NEGATIVE); KETONES,URINE (UA) 15 mg/dL (NEGATIVE); LEUKOCYTE ESTERASE, URINE TRACE (NEGATIVE); NITRITE,URINE NEGATIVE (NEGATIVE); OCCULT BLOOD,URINE NEGATIVE (NEGATIVE); PH,URINE 6.5 PH (5.0-7.5); PROTEIN,URINE NEGATIVE (NEGATIVE); UROBILINOGEN,URINE 2 E.U./dL (NORMAL)
[2022-05-05 20:42] LABS: CLARITY,URINE HAZY (CLEAR)
[2022-05-05] MEDS ORDERED: ACETAMINOPHEN 500 MG TABLET PO ONE (20:45)
[2022-05-05 20:49] LABS: BACTERIA,URINE Few /HPF (None Seen); RBC,URINE 0-5 /HPF (0-5); SQUAMOUS EPITHELIAL CELL,UR FEW Squamous (<= Few)
[2022-05-05 23:21] VITALS: BP 101/77
--- NOTE | 2022-05-06 00:42 | Ultrasound Report ---
PROCEDURE: OB Limited INDICATIONS: marginal placenta previa OUTSIDE/PRIOR DATING DATA: Last menstrual period (LMP): 08/24/2021. LMP-based estimated date of delivery (NAHED): 05/31/22. First dating scan (date and location): 10/31/2021. Estimated date of delivery (NAHED) from first dating scan: 06/01/2022. The below data below was generated using the ultrasound NAHED of 06/01/2022 TECHNIQUE: Real-time scanning was performed of the fetus, with image documentation. COMPARISON: 04/04/2020. FINDINGS: A single living intrauterine gestation is present. Presentation: Transverse with head to maternal left. Placenta: Placental position is posterior, without previa. Inferior margin of the placenta is demonst rated approximately 4.1 to 4.9 cm from the internal cervical os. heart rate: 119 beats per minutes. Maternal cervical canal: 3.2 cm long; normal length is 2.5 cm or more. Estimated gestational age from initial scan: 36 weeks 1 day. IMPRESSION: 1. Single living intrauterine redemonstrated. 2. No evidence of placenta previa. Reviewed by: Ha Hernandez MD on 05/06/2022 12:41 AM PDT Approved by: Ha Hernandez MD on 05/06/2022 12:41 AM PDT Station ID: [id number]
== END 2022-05-05 23:10 | disposition home or self-care (01) ==
LOC: WFO 19:44 → FBP 19:46 → WFO 23:10
PROVIDERS: ATTEND Obstetrics & Gynecology
DX: O47.03 False labor before 37 completed weeks of gestation, third trimester (principal); R82.71 Bacteriuria; Z3A.36 36 weeks gestation of pregnancy
CPT/HCPCS: 59025; 76815; 81001; 87086; 99215; A9270

== ENCOUNTER 2022-05-17 10:12 | Outpatient (CLI) | payer OTHER ==
[2022-05-17 10:47] LABS: BASOPHILS % (AUTO) 0.4 %; EOSINOPHILS % (AUTO) 0.4 %; HCT - HEMATOCRIT 33.8 % (37.0-47.0); HGB - HEMOGLOBIN 10.8 g/dL (12.0-16.0); LYMPHOCYTES # (AUTO) 1.4 10^3/uL (1.5-3.5); LYMPHOCYTES % (AUTO) 16.9 %; MEAN CORPUSCULAR HEMOGLOBIN 28.7 pg (27.0-31.0); MEAN CORPUSCULAR VOLUME 89.9 fL (81.0-99.0); MEAN PLATELET VOLUME 10.5 fL (7.9-10.8); MONOCYTES # (AUTO) 0.7 10^3/uL (0.0-1.0); MONOCYTES % (AUTO) 8.2 %; NEUTROPHILS # (AUTO) 5.9 10^3/uL (1.5-6.6); PLT - PLATELET COUNT 143 10^3/uL (130-450); RED BLOOD COUNT 3.76 10^6/uL (4.20-5.40); RED CELL DISTRIBUTION WIDTH 13.8 % (12.0-15.0); WHITE BLOOD COUNT 8.2 x10^3/uL (4.8-10.8)
[2022-05-17] MEDS ORDERED: ONDANSETRON ODT 4 MG TABLET TL ONE (11:00)
[2022-05-17 11:03] LABS: ALBUMIN/GLOBULIN RATIO 0.9 (1.0-2.2); BILIRUBIN,TOTAL 0.6 mg/dL (0.2-1.0); CALCIUM 8.9 mg/dL (8.5-10.3); CREATININE 0.4 mg/dL (0.4-1.0); POTASSIUM 3.9 mmol/L (3.5-5.0); TOTAL PROTEIN 6.4 g/dL (6.7-8.2)
[2022-05-17 11:25] LABS: BILIRUBIN,URINE NEGATIVE (NEGATIVE); GLUCOSE, URINE (UA) NEGATIVE (NEGATIVE); KETONES,URINE (UA) NEGATIVE (NEGATIVE); LEUKOCYTE ESTERASE, URINE NEGATIVE (NEGATIVE); NITRITE,URINE NEGATIVE (NEGATIVE); OCCULT BLOOD,URINE NEGATIVE (NEGATIVE); PROTEIN,URINE NEGATIVE (NEGATIVE); UROBILINOGEN,URINE 1 (NORMAL) E.U./dL (NORMAL)
[2022-05-17 11:38] LABS: BACTERIA,URINE Rare /HPF (None Seen); CLARITY,URINE CLEAR (CLEAR); CRYSTALS,URINE 11-25 Ca Oxalate /LPF; RBC,URINE None Seen /HPF (0-5); SQUAMOUS EPITHELIAL CELL,UR RARE Squamous (<= Few); WBC,URINE 0-3 /HPF (0-5)
[2022-05-17 12:13] VITALS: BP 101/66
--- NOTE | 2022-05-17 13:08 | PROCEDURE REPORT ---
- HPI Diagnosis/Indication for NST: Other (syncope, nausea) Current EDU 05/31/22 Gestation 38 Weeks and 0 Days 3 Para 2 Vital Signs Temperature 98.2 F 05/17/22 10:44 Heart Rate 92 05/17/22 10:44 Respiratory Rate 16 05/17/22 10:44 Blood Pressure 111/77 05/17/22 10:44 Temperature 98.1 F 05/17/22 12:05 Heart Rate 78 05/17/22 12:05 Respiratory Rate 16 05/17/22 12:05 Blood Pressure 101/66 05/17/22 12:05 O2 Saturation 99 05/17/22 11:07 If not protocol: Oxygen Flow, liters/minute - NST Procedure NST Procedure Start Date 05/17/22 Start Time 10:23 Stop Time 11:07 Vibroacoustic Stimulation Used No Patient States Movement Yes moderate variability base line: 130 present acceleration negative deceleration interpretation: reactive Plan: discharge home and fu with her OB - Results and Plan Findings/Impression: reactive NST Plan: FU with her own OB as scheduled
--- NOTE | 2022-05-17 13:11 | PROVIDER PROGRESS NOTE ---
Subjective - Prog Note Date Prog Note Date: 05/17/22 Prog Note Time: 10:30 - Subjective Pt reports feeling: Improved (syncope episode and nausea) Objective - Vital Signs/Intake & Output Vital Signs: Vital Signs x48h Temp Pulse Pulse Resp BP BP Pulse Ox 05/17/22 12:05 98.1 F 78 16 101/66 05/17/22 11:07 89 14 105/77 99 05/17/22 10:44 98.2 F 92 16 111/77 - Objective General Appearance: positive: No acute distress - Lab Results Fish Bones: 05/17/22 10:42 05/17/22 10:42 Other Labs: Lab Results x24hrs 05/17/22 05/17/22 05/17/22 Range/Units 11:15 10:42 10:42 WBC 8.2 (4.8-10.8) x10^3/uL RBC 3.76 L (4.20-5.40) 10^6/uL Hgb 10.8 L (12.0-16.0) g/dL Hct 33.8 L (37.0-47.0) % MCV 89.9 (81.0-99.0) fL MCH 28.7 (27.0-31.0) pg MCHC 32.0 (32.0-36.0) g/dL RDW 13.8 (12.0-15.0) % Plt Count 143 (130-450) 10^3/uL MPV 10.5 (7.9-10.8) fL Neut # (Auto) 5.9 (1.5-6.6) 10^3/uL Lymph # (Auto) 1.4 L (1.5-3.5) 10^3/uL [place] # (Auto) 0.7 (0.0-1.0) 10^3/uL Eos # (Auto) 0.0 (0.0-0.7) 10^3/uL Baso # (Auto) 0.0 (0.0-0.1) 10^3/uL Absolute Nucleated RBC 0.00 x10^3/uL Nucleated RBC % 0.0 /100WBC Sodium 136 (135-145) mmol/L Potassium 3.9 (3.5-5.0) mmol/L Chloride 107 (101-111) mmol/L Carbon Dioxide 22 (21-32) mmol/L Anion Gap 7.0 (6-13) BUN 7 (6-20) mg/dL Creatinine 0.4 (0.4-1.0) mg/dL Estimated GFR (MDRD) 187 (>89) Glucose 76 (70-100) mg/dL POC Whole Bld Glucose (70 - 100) mg/dL Calcium 8.9 (8.5-10.3) mg/dL Total Bilirubin 0.6 (0.2-1.0) mg/dL AST 18 (10-42) IU/L ALT 13 (10-60) IU/L Alkaline Phosphatase 165 H (42-121) IU/L Total Protein 6.4 L (6.7-8.2) g/dL Albumin 3.0 L (3.2-5.5) g/dL Globulin 3.4 (2.1-4.2) g/dL Albumin/Globulin Ratio 0.9 L (1.0-2.2) Urine Color YELLOW Urine Clarity CLEAR (CLEAR) Urine pH 6.0 (5.0-7.5) PH Ur Specific [place] 1.025 (1.002-1.030) Urine Protein NEGATIVE (NEGATIVE) mg/dL Urine Glucose (UA) NEGATIVE (NEGATIVE) mg/dL Urine Ketones NEGATIVE (NEGATIVE) mg/dL Urine Occult Blood NEGATIVE (NEGATIVE) Urine Nitrite NEGATIVE (NEGATIVE) Urine Bilirubin NEGATIVE (NEGATIVE) Urine Urobilinogen 1 (NORMAL) (NORMAL) E.U./dL Ur Leukocyte Esterase NEGATIVE (NEGATIVE) Urine RBC None Seen (0-5) /HPF Urine WBC 0-3 (0-5) /HPF Ur Squamous Epith Cells RARE Squamous (<= Few) Urine Crystals 11-25 Ca Oxalate /LPF Urine Bacteria Rare (None Seen) /HPF 05/17/ Range/Units 10:38 WBC (4.8-10.8) x10^3/uL RBC (4.20-5.40) 10^6/uL Hgb (12.0-16.0) g/dL Hct (37.0-47.0) % MCV (81.0-99.0) fL MCH (27.0-31.0) pg MCHC (32.0-36.0) g/dL RDW (12.0-15.0) % Plt Count (130-450) 10^3/uL MPV (7.9-10.8) fL Neut # (Auto) (1.5-6.6) 10^3/uL Lymph # (Auto) (1.5-3.5) 10^3/uL [place] # (Auto) (0.0-1.0) 10^3/uL Eos # (Auto) (0.0-0.7) 10^3/uL Baso # (Auto) (0.0-0.1) 10^3/uL Absolute Nucleated RBC x10^3/uL Nucleated RBC % /100WBC Sodium (135-145) mmol/L Potassium (3.5-5.0) mmol/L Chloride (101-111) mmol/L Carbon Dioxide (21-32) mmol/L Anion Gap (6-13) BUN (6-20) mg/dL Creatinine (0.4-1.0) mg/dL Estimated GFR (MDRD) (>89) Glucose (70-100) mg/dL POC Whole Bld Glucose 88 (70 - 100) mg/dL Calcium (8.5-10.3) mg/dL Total Bilirubin (0.2-1.0) mg/dL AST (10-42) IU/L ALT (10-60) IU/L Alkaline Phosphatase (42-121) IU/L Total Protein (6.7-8.2) g/dL Albumin (3.2-5.5) g/dL Globulin (2.1-4.2) g/dL Albumin/Globulin Ratio (1.0-2.2) Urine Color Urine Clarity (CLEAR) Urine pH (5.0-7.5) PH Ur Specific [place] (1.002-1.030) Urine Protein (NEGATIVE) mg/dL Urine Glucose (UA) (NEGATIVE) mg/dL Urine Ketones (NEGATIVE) mg/dL Urine Occult Blood (NEGATIVE) Urine Nitrite (NEGATIVE) Urine Bilirubin (NEGATIVE) Urine Urobilinogen (NORMAL) E.U./dL Ur Leukocyte Esterase (NEGATIVE) Urine RBC (0-5) /HPF Urine WBC (0-5) /HPF Ur Squamous Epith Cells (<= Few) Urine Crystals /LPF Urine Bacteria (None Seen) /HPF Assessment/Plan - Problem List (1) Syncope and collapse Impression: Plan : reactive NST fu with her OB as scheduled. CBC, random BS normal Reassurance was provided History of Present Illnes - History of Present Illness Reason for Visit: episode of syncope History of Present Illness: This 31-year-old female patient presented to the emergency room with a chief complaint of a syncope episode and nausea. She has had her care somewhere else and is scheduled to have repeat section next week. Her random blood sugar was 88 and CBC showed a slight anemia and BMP was normal. Nonstress test was reactive and she and her were explained the findings and reassurance was provided. She will go and follow-up with her own OB provider.
== END 2022-05-17 12:05 | disposition home or self-care (01) ==
LOC: WFO 10:12 → FBP 10:15 → WFO 12:05
PROVIDERS: ATTEND Obstetrics & Gynecology
DX: O99.891 Other specified diseases and conditions complicating pregnancy (principal); R55 Syncope and collapse; R11.0 Nausea; O34.219 Maternal care for unspecified type scar from previous cesarean delivery; O99.013 Anemia complicating pregnancy, third trimester; Z3A.38 38 weeks gestation of pregnancy
CPT/HCPCS: 36415; 59025; 80053; 81001; 85025; 99214; Q0162